=== PATIENT | female | born 1955 | race Caucasian/White ===

== ENCOUNTER 2024-10-01 10:36 | Emergency (ER) | payer MEDICARE, SELFPAY ==
--- NOTE | ~2024-10-01 | XR_ITS ---
EXAMINATION: XR chest 2V DATE: 10/01/2024 11:51 INDICATION: Cough and congestion TECHNIQUE: frontal and lateral views of the chest were obtained. COMPARISON: None FINDINGS: A few small calcified nodules in the bilateral lower lung zones with calcified mediastinal lymph node s consistent with old granulomatous disease. No other airspace opacities, pulmonary edema, pleural ef fusion or pneumothorax. The cardiomediastinal silhouette is normal. Mild to moderate thoracic spondyl osis. Cholecystectomy clips the upper abdomen. IMPRESSION: 1. No acute cardiopulmonary disease. Reviewed, dictated and finalized at location A.
[2024-10-01 11:00] VITALS: BP 112/73; PULSE 77; RESP 16; TEMP 36.3; O2SAT 99
--- NOTE | 2024-10-01 11:37 | ED_ITS ---
HPI - URI/Sore Throat General Chief Complaint: Upper Respiratory Infection Stated Complaint: cough Time Seen by Provider: 10/01/24 11:24 Source: patient, RN notes reviewed and old records reviewed Mode of arrival: ambulatory Limitations: no limitations History of Present Illness HPI Narrative: 68 year old female accompanied by spouse presents to express care with complaints of one week duration of cough with fevers for the first 2 days ill. Patient reports that she has some chest congestion with expectoration of some white mucous, states ribs hurt from coughing so much. Patient reports that she has taken DayQuil and NyQuil and she is now taking Coricidin brand cold medication without resolution. Patient reports that she has had past pneumonia. MD elicited complaint: fever, cough and other (chest congestion ribs hurt from coughing) Pertinent past history: pneumonia Onset (ago): week(s) (1) Consistency: constant Severity: moderate Description of mucous: other (white) Able to tolerate fluids by mouth: Yes Treatments prior to arrival: other (has taken DayQuil and NyQuil now taking Coricidin cold medication) Related Data Home Medications ?Medication ?Instructions ?Recorded ?Confirmed ?Last Taken ?Type carvedilol 10/01/24 Unknown History losartan-hydrochlorothiazide 10/01/24 Unknown History simvastatin 10/01/24 Unknown History topirimate 10/01/24 Unknown History trazadone 10/01/24 Unknown History Allergies Allergy/AdvReac Type Severity Reaction Status Date / Time codeine Allergy Unknown Unknown Verified 10/01/24 10:54 Review of Systems Review of Systems: CONSTITUTIONAL:Reports malaise, chills, sweats, and fevers for 2 days at initial start of illness EYES: Denies visual changes, redness, or discharge. ENT: Reports rhinorrhea, congestion, no sinus pain, no otalgia and no sore throat. CARDIOVASCULAR: Denies chest pain, palpitations, or edema. RESPIRATORY: Reports productive cough at times, states cough is frequent.? Denies dyspnea.reports rib pain from frequent cough GASTROINTESTINAL: Denies abdominal pain, nausea, vomiting, diarrhea SKIN: Denies rash or itching. MUSCULOSKELETAL: Denies myalgia. NEUROLOGIC: Denies headache. All systems reviewed & are unremarkable except as noted in HPI and below PMFSH Past Medical History Medical History (Updated 10/02/24 @ 20:32 by Arlene Ruiz NP) Insomnia Hyperlipidemia Hypertension Surgical History Surgical History (Updated 10/02/24 @ 20:35 by Arlene Ruiz NP) Hx of cholecystectomy Social History Social History Smoking status: Former smoker Additional smoking assessment comments: quit 2008 Alcohol intake: current Alcohol use details: rare Substance use type: does not use Living arrangements: with family Gender identity (if verbalized by the patient): Female Comments At time of signature, agree with nursing past medical, surgical, social and family history. There is no relevant family history pertinent to the presenting complaint Exam Narrative: GENERAL: Well-appearing, well-nourished, and in no acute distress. HEAD: Normocephalic EYES: PERRLA, conjunctivae clear ENT: Nares clear, turbinates edematous and erythematous, clear discharge. Mucous membranes moist. TM pearly berry with dull light reflex bilaterally; no tragal tenderness. Oropharynx erythematous without lesions. Tonsils not enlarged and without exudate, no drooling, no hoarseness, no trismus, uvula midline post nasal drainage. NECK: Supple. No lymphadenopathy CHEST: Faint wheezes upper lobes auscultation, breath sounds equal. + wheezing, no rhonchi, rales, or stridor. No respiratory distress, speaks in full sentences cough noted at times productive. SAO2 99% on room air. HEART: Regular rate and rhythm. No murmur heard. SKIN: Warm, dry, no rash. NEURO: Alert and oriented x3. PSYCH: Normal mood and affect Course Course Emergency Course: Patient is aware of diagnosis, understands and agrees to treatment plan.? Anticipatory guidance given.? Patient agrees to follow-up as directed and is aware of reasons to seek care at the emergency department. Portions of this record may have been created with voice recognition software Level of Care: Express Care Visit Vital Signs Vital signs: Vital Signs Temperature 36.3 C L 10/01/24 11:00 Pulse Rate 77 10/01/24 11:00 Respiratory Rate 16 10/01/24 11:00 Blood Pressure 112/73 10/01/24 11:00 Pulse Oximetry 99 10/01/24 11:00 Oxygen Delivery Room Air 10/01/24 11:00 Temperature 36.3 C L 10/01/24 11:00 Pulse Rate 77 10/01/24 11:00 Respiratory Rate 16 10/01/24 11:00 Blood Pressure 112/73 10/01/24 11:00 Pulse Oximetry 99 10/01/24 11:00 Oxygen Delivery Room Air 10/01/24 11:00 Reviewed MDM - URI/Sore Throat MDM Narrative Medical decision making narrative: Differential diagnosis considered: De [place] virus, strep pharyngitis, allergic rhinitis, upper respiratory tract infection, sinusitis, rhinosinusitis, nasopharyngitis. viral pharyngitis, otitis media, otitis externa, pneumonia, bronchitis, viral cough syndrome, viral syndrome, and influenza.? Exam findings show no acute concerns or changes; patient is non-toxic appearing and is in no distress.? Patient is appropriate for outpatient treatment and follow-up. Differential Diagnosis Differential diagnosis: Likely upper respiratory infection, viral infection, bronchitis and other (acute cough) Medical Records Attestation: I reviewed the patient's medical records. Lab Data Attestation: I reviewed the patient's lab results. Imaging Data Attestation: I personally reviewed and interpreted this imaging study as follows: My impression: no acute cardiopulmonary disease Radiologist's impression: [address] [employer] [place] [id number] XRay Report Signed Patient: Sarai Doss : 1955 MR#: [id number] Age: 68 Acct:[id number] Loc: [facility] ADM Date: 10/01/24Attending Dr: Ordering Physician: Arlene Ruiz APRN Date of Service: 10/01/24 Procedure(s): XR chest 2V Accession Number(s): [id number] cc: Arlene Ruiz APRN~ EXAMINATION: XR chest 2V DATE: 10/01/2024 11:51 INDICATION: Cough and congestion TECHNIQUE: frontal and lateral views of the chest were obtained. COMPARISON: None FINDINGS: A few small calcified nodules in the bilateral lower lung zones with calcified mediastinal lymph nodes consistent with old granulomatous disease. No other airspace opacities, pulmonary edema, pleural effusion or pneumothorax. The cardiomediastinal silhouette is normal. Mild to moderate thoracic spondylosis. Cholecystectomy clips the upper abdomen. IMPRESSION: 1. No acute cardiopulmonary disease. Reviewed, dictated and finalized at location A. Please be advised this is a medical document. It is intended for uioo-ej-pbsj communication. It is written in medical language and may contain unfamiliar abbreviations or verbiage. Medical documents are intended to carry relevant information, facts as evident, and the clinical opinion of the practitioner at the time of the encounter. This report may have been done utilizing a voice recognition system. Attempts have been made to correct errors. However, there may be uncorrected grammatical, spelling, and recognition errors present. The file time of this note does not necessarily represent the time of service. Dictated By: Lefty Davey MD 10/01/24 1157 Signed By: <Electronically signed by Lefty Davey MD in OV> Critical Care Time Critical Care Time Critical Care Time: No Discharge Plan Discharge Clinical Impression: Bronchitis Patient Disposition: Home Condition: Stable Instructions: Antibiotic Form, Acute Bronchitis (ED) Additional Instructions: Increase fluids especially juices and water Buwr-xkm-lmofbph cough and cold medicine of your choice for your symptoms Zyrtec Claritin or Berna daily continue Coricidin brand decongestant Continue your inhaler/nebulizer as directed Albuterol inhaler prescribed Steroids as directed--take with food Prednisone daily for 5days with food heat to the face 20-30 minutes 4-6 times a day for pain Salt water gargles, throat lozenges or throat sprays as desired Antibiotic as directed--finished the medication Azithromycin 250 mg tabs 2 day 1 tab1 day 2-5 If your symptoms persist, change or worsen significantly before you can contact your personal physician then please, without delay, go to the emergency department for further evaluation. Follow-up with PCP in 7-10 days or sooner if needed Follow up with PCP soon in regards to your blood pressure which is elevated above threshold for referral. Blood pressure above 120/80 may indicate pre- hypertension. Written prescription given for patient to have filled at her pharmacy. Patient Language: [place] Prescriptions: No Action simvastatin losartan-hydrochlorothiazide trazadone carvedilol topirimate Follow-up/Referrals: PHYSICIAN NOT ON STAFF,NONSTAFF [Primary Care Provider] - Time of Disposition: 12:17 Quality Bret Coma Scale Eyes: Open Verbal: Oriented and Alert Motor: Follows Commands [place] Coma Total Score: 15
--- OUTSIDE RECORDS SUMMARY | 2024-10-01 17:58 | XMS_ITS | Continuity of Care Document ---
Author Organization [email or web address] [facility] [place] [address] [address] [place] [address] Phone Care Team Providers Care Receiver Name Role Phone Salvatore Urrutia MD Unavailable Unavailable Allergies, Adverse Reactions, Alerts Substance Reaction Status Criticality No Known Allergies Active No Inform ation Medications Medication Instructions Dosage Effective Dates (start - stop) Status Comments prednisolone acetate 1 % eye drops,suspension instill 1 drop by ophthalmic route 4 times every day into operative eye for 2 weeks, then 2 times per day for 2 weeks, then stop - Active moxifloxacin 0.5 % eye drops instill 1 drop by ophthalmic route 4 times every day into operative eye for 2 weeks, then stop - Active ketorolac 0.5 % eye drops instill 1 drop in operative eye 4 times every day for 2 weeks, then 2 times per day for 2 weeks, then stop - Active trazodone 50 mg tablet take 1 tablet by oral route 3 times every day after meals 50 MG - Active topiramate 100 mg tablet take 1 tablet by oral route 2 times every day 100 MG - Active simvastatin 40 mg tablet take 1 tablet by oral route every day in the evening 40 MG - Active clonidine HCl 0.2 mg tablet take 1 tablet by oral route 2 times every day 0.2 MG - Active carvedilol 12.5 mg tablet take 1 tablet by oral route 2 times every day with food 12.5 MG - Active Procedures Procedure Date No Charge Refraction Post-op Follow-up Visit Post-op Follow-up Visit Post-op Follow-up Visit Remove Cataract, Insert Lens IOLMaster-Professional No Charge Refraction Post-op Follow-up Visit Post-op Follow-up Visit Remove Cataract, Insert Lens IOLMaster-Professional IOLMaster-Technical SCODI, Retina No Charge Optomap Fundus Photos 023 No Charge Refraction No Charge Orbscan No Charge GDX Posterior Segment 023 Office/outpatient Visit, [facility] Advance Directives Directive Yes / No Effective Date File Name No Information Encounters Encounter Description Practice Location Reason(s) For Visit Diagnoses Date Provider Providers Copied on Encounter [facility], [address] [place] [address], [id number], tel:[phone] SEC Jason CARPENTER Professional Post-Op (chief complaint) Post op visit 3 Renan Chase. [address] [facility] [place], [id number], [place]. tel:[phone] Referring Provider: Maurizio Ramos OD, [address] [place] [address], [address] . tel:[phone] [facility], [address] [place] [address] [address], [place], [place], [id number], [place] tel:[phone] SEC Jason JAYDEN Professional 1 week s/p PCIOL (chief complaint) Post op visit 3 Elmer OD Apoorva. [address] [place] [address], [address], [place], [place], [id number], [place]. tel:[phone] Referring Provider: Maurizio Ramos OD, [facility] [place], [address] . tel:[phone] [facility], [address] [place] [address] [address], [place], [place], [id number], tel:[phone] SEC Blanchard JAYDEN Professional 1 day s/p PCIOL (chief complaint) Post op visit Aug- 3 Elmer OD Apoorva. [address] [place] [address] [employer] [facility], [address], [place], [place], [id number], . tel:[phone] Referring Provider: Maurizio Ramos OD, [address] [place] [address], [address] . tel:[phone] [facility], [address] [place] [address] [address], [place], [place], [id number], tel:[phone] [facility] No Information 3 Renan Chase. [address] [facility], [facility] [place], [id number], [place]. tel:[phone] Referring Provider: Maurizio Ramos OD, [address] [place] [address], [address] . tel:[phone] [facility], [address] [place] [address] [address], [place], [place], [address], [phone] SEC Jason CARPENTER Professional No Information 3 Renan Chase. [address] [facility], [facility] [place], [id number], [place]. tel:[phone] Referring Provider: Maurizio Ramos OD, [address] [place] [address], [address] . tel:[phone] [facility], [address] [place] [address] [address], [place], [place], [address], [place] tel:[phone] SEC Jason CARPENTER Professional 2 week postop (chief complaint) Post op visit Aug-0 3 Elmer OD Apoorva. [address] [place] [address] [employer] [facility], [address], [place], [place], [address], . tel:[phone] Referring Provider: Maurizio Ramos OD, [address] [place], [address] . tel:[phone] [facility], [address] [place] [address] [address], [place], [place], [id number], [place] tel:[phone] SEC Jason [place] Professional 1 day PC IOL po (chief complaint) Post op visit Jul-2 3 Elmer OD Apoorva. [address] [place] [address] [address], [address], [place], [place], [address], [place]. tel:[phone] Referring Provider: Maurizio Ramos OD, [address] [place], [address] . tel:[phone] [facility], [address] [place] [address] [address], [place], [place], [id number], [place] tel:[phone] [facility] No Information Jul-2 3 Renan Chase. [address] [facility], [address], [place], [place], [address], [place]. tel:[phone] Referring Provider: Maurizio Ramos OD, [address] [place], [address] . tel:[phone] [facility], [address] [place] [address] [address], [place], [place], [id number], [place] tel:[phone] SEC Jason JAYDEN Professional No Information Jul-2 3 Renan Chase. [address] [facility], [address], [place], [place], [address], [place]. tel:[phone] Referring Provider: Maurizio Ramos OD, [address] [place], [address] . tel:[phone] [facility], [address] [place] [address] [address], [place], [place], [address], [place] tel:[phone] SEC Jason JAYDEN Professional No Information Jul-1 3 Renan Chase. [address] [employer], [address], [place], [place], [address], [place]. tel:[phone] Office/outpa tient Visit, [facility], [address], [place], [place], [address], tel:[phone] Looking for Gamersn JAYDEN Professional Cataract evaluation (chief complaint) History of pituitary tumorDegenera tive retinal drusen, left eyeAge-relate d nuclear cataract, bilateral 3 Renan Chase. [address] [employer], [address], [place], [place], [address], [place]. tel:[phone] Referring Provider: Maurizio Ramos OD, [address] [facility], [place], [address] . tel:[phone] [facility], [address] [place] [address] [address], [place], [place], [address], tel:[phone] Looking for Gamersn JAYDEN Professional No Information 3 Renan Chase. [address] [employer], [address], [place], [place], [address], [place]. tel:[phone] Family History Family Member Type Diagnosis Age At Onset No Information Payers Payer name Insurance type Covered republican ID Authoriza tion(s) No Information Social History Type Description Quantity Date Captured Comments Alcohol Use Details No Caffeine Use Details Tobacco Use Status Current non-smoker Smoking Status Never smoker Non-Smoking Tobacco Use Details : No Details Available : No Details Available Sex Female Chief Complaint And Reason For Visit From encounter dated '09/23/2022 10:00'. Post-Op (chief complaint). Description: The 66 year old patient presents for a 1 month post op CE OS. Patient is finished with drops. Patient states OS is doing good. Reason For Referral Reason For Referral No Information Plan Of Treatment Date Type Action Status Patient Education Learning About Your Eye s completed History Of Present Illness Encounter Date Complaint History Of Prese nt Illness Post-Op The 66 year old patient presents for a 1 month post op CE OS. Patient is finished with drops. Patient states OS is doing good. 1 week s/p PCIOL The 66 year old patient presents for evaluation of 1 week s/p PCIOL in the left eye (08/26/22). Patient states VA seems good. Patient using Pred, Vig, and Ket as directed. 1 day s/p PCIOL The 66 year old patient presents for evaluation of 1 day s/p PCIOL in the left eye. Patient states VA seems fine but the left eye is hurting. Patient instructed to use Pred, Ket, and Vig as directed. 2 week postop The 66 year old patient presents for evaluation of 2 week postop in the right eye. Pt. had PC/IOL OD 07/22/2022. Pt. is using Pred OD qid, and Ket OD qid. Pt. states her vision is improved in OD. Pt. has a cataract in OS. Pt. is c/o of difficulty seeing small print with OS even with glasses on. Pt. is also having trouble driving at night due to glare from headlights. 1 day PC IOL po The 66 year old patient presents for evaluation of 1 day PC IOL po in the right eye. All medications reviewed and PO instructions understood. Pt using Vig qid, PF1% qid, and Ketorolac qid. Pt states eye is itching and throbbing. Pt states vision is still blurry. Cataract evaluation The 66 year old patient presents for a cataract evaluation ou. Patient is a glaucoma suspect per Dr. Ramos and would like an ON OCT to be mailed to him. Patient c/o hers eyes hurt a lot. 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 Patient is bothered by glare around lights at night. Patient is having a hard time reading small print. Functional Status Date Functional Assessmen t No Information Instructions Date Instruction Additional Infor milla Impression/Plan Impression/Plan Impression/Plan Impression/Plan Impression/Plan Impression/Plan Assessments Type Assessment Date assessment Post op visit Patient Care Teams Name Effective Dates (start - stop) Status Members No Information
--- OUTSIDE RECORDS SUMMARY | 2024-10-01 17:58 | XMS_ITS | Clinical Summary ---
Author Organization [facility] Address [address] [place] [address] Care Team Providers Care Linderman Machine Operator Name Role Phone Terrie Sheridan LAMINATING MACHINE OFFBEARER Primary Care Provider Allergies Active Allergy Reactions Criticality Noted Date Comments Codeine Nausea & Vomiting,Other (See comments) High Medications carvedilol (COREG) 12.5 mg tabletIndications:h ypertension Take 12.5 mg by mouth 2 (two) times a day with meals Active simvastatin (ZOCOR) 40 mg tabletIndications:h yperlipidemia Take 40 mg by mouth nightly Active traZODone (DESYREL) 50 mg tablet Take 50 mg by mouth nightly Active cetirizine (ZyrTEC) 10 mg tablet Take 10 mg by mouth daily Active venlafaxine (EFFEXOR) 25 mg tablet Take 25 mg by mouth 3 (three) times a day 2 Active cloNIDine (CATAPRES) 0.2 mg tablet Take 0.2 mg by mouth 3 (three) times a day 7 Active topiramate (TOPAMAX) 100 mg tablet Take 100 mg by mouth 2 (two) times a day 2 Active ondansetron ODT (ZOFRAN-ODT) 4 mg disintegrating tablet Take 1 tablet (4 mg total) by mouth every 8 (eight) hours as needed for nausea or vomiting 20 tablet 2 Active azithromycin (Zithromax Z-Mynor) 250 mg tablet Take 1 tablet (250 mg total) by mouth daily Take first 2 tablets together, then 1 every day until finished. 6 tablet 2 Active ondansetron (ZOFRAN) 4 mg tablet Take 1 tablet (4 mg total) by mouth every 6 (six) hours 12 tablet 2 Active butalbital-acetamin ophen-caffeine (ESGIC) 50-325-40 mg per tablet TAKE 1 TABLET BY MOUTH EVERY 6 HOURS NEEDED FOR HEADACHE OR MIGRAINE 2 Active HYDROcodone-acetami nophen (NORCO) 5-325 mg per tabletIndications:P ain Take 1-2 tablets by mouth every 4 (four) hours as needed for pain Do not exceed 8 tablets/day. 15 tablet 2 Active Active Problems Problem Noted Date Diagnosed Date Epidermoid cyst of skin of chest 07/30/2021 Overview (07/30/2021): Added automatically from request for surgery [id number] Vaginal vault prolapse, posthysterectomy 020 Overview (04/16/2020): Added automatically from request for surgery [id number] Encounter for screening colonoscopy 07/27/2018 Overview (07/27/2018): Added automatically from request for surgery [id number] Encounters Date Type Department Care Team Description 08/29/2024 12:54 PM CDT - 08/29/2024 11:59 PM CDT Hospital Encounter [facility] [address] [place] [id number] Encounter for screening mammogram for malignant neoplasm of breast Discharge Disposition: Discharge to home or self care 08/29/2024 12:53 PM CDT - 08/29/2024 11:59 PM CDT Hospital Encounter [facility] [address] [place] [id number] Encounter for screening for osteoporosis Discharge Disposition: Discharge to home or self care from Last 3 Months Surgical History Surgery Date Site/Laterality Comments HYSTERECTOMY OOPHORECTOMY COLOSTOMY 12/31/2008 Dr Rock CHOLECYSTECTOMY PITUITARY EXCISION N/A Medical History Medical History Date Comments GERD (gastroesophageal reflux disease) Hypertension Hyperlipidemia Family History Medical History Relation Name Comments Breast cancer Mother Relation Name Status Comments Mother Social History Tobacco Use Types Packs/Day Years Used Date Smoking Tobacco: Former Smokeless Tobacco: Never Comments:quit in 2008 Alcohol Use Standard Drinks/Week Comments Yes 0 (1 standard drink = 0.6 oz pur e alcohol) occasional AUDIT-C Answer Date Recorded Q1: How often do you have a drink containing alc ohol? Monthly or less 08/07/2021 Average Number of Drinks Not on file 022 Q3: How often do you have si x or more drinks on one occasion? 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 ENGINEERING MANAGER Gender Identity Not on file Sexual Orientation Not on file Obstetrics History Para Term AB IAB SAB Ectopic Multiple Livin g Live Births 4 3 3 Date Outcome GA Total Labor Labor/3rd Weight Sex Type Anes PTL Verito A1 A5 Name Clin Term Term Term Last Filed Vital Signs Vital Sign Reading Time Taken Comments Blood Pressure 165/79 04/26/2022 3:07 PM CIVIL ENGINEERING MANAGER Pulse 56 04/26/2022 3:07 PM CIVIL ENGINEERING MANAGER Temperature 36.5 C (97.7 F) 04/26/2022 3:07 PM CIVIL ENGINEERING MANAGER Respiratory Rate 18 04/26/2022 3:07 PM CIVIL ENGINEERING MANAGER Oxygen Saturation 100% 04/26/2022 3:07 PM CIVIL ENGINEERING MANAGER Inhaled Oxygen Concentration - - Weight 53.5 kg (118 lb) 08/29/2024 1:06 PM CDT Height 144.8 cm (4' 9) 08/29/2024 1:06 PM CDT Body Mass Index 25.53 08/29/2024 1:06 PM CDT Plan of Treatment Health Maintenance Due Date Last Done Comments Depression Screening 1955 Hepatitis C Screening 1955 Hepatitis B Screening 10/12/1973 Zoster Vaccine (1 of 2) 10/12/2005 Well Visit 65+ 10/12/2020 Fall Risk Assessment 05/14/2021 05/14/2020 Pneumococcal vaccine 65+ (2 of 2 - PPSV23) 10/28/2021 10/28/2020 Covid-19 Vaccine (4 - 2023-2 5 season) 2024 02/25/2021, 07/05/2020, 06/07/2020 Breast Cancer Screening-Mammogram 08/29/2025 08/29/2024, 04/22/2023, 11/18/2020, Additional history exists Osteoporosis Screening-Bone Density Scan 08/29/2026 08/29/2024 DTaP/Tdap/Td Vaccine (2 - Td or Tdap) 07/19/2028 07/19/2018, 08/31/2013, 05/03/2011 Colon Cancer Screening-Colonoscopy 08/09/2028 08/09/2018 Colon Cancer Screening-CT Colonography Discontinued 08/09/2018 Colon Cancer Screening-DNA Stool Discontinued 08/10/19 Colon Cancer Screening-FIT Discontinued 08/09/2018 Colon Cancer Screening-Sigmoidoscopy Discontinued 08/09/2018 Influenza Vaccine Completed 01/19/2024, , 02/25/2021, Additional history exists Medical Devices Implanted Type Area Rn Appeals Device Identifier Shelf Expiration Date Model / Serial / Lot [employer] Tati [id number] Upsylon 35.4cm Elongation Profile Lightweight Large Pore Low - [id number] Implanted:Qty: 1 on 05/14/2020 by Duane Mcguire MD at [facility] Mesh N/A: Pelvis [employer] 01/30/2023 [id number] / / [id number] [employer] [id number] Obtryx Ii Precisionblue Advantage .15mm 22cm Sling Halo Needle - [id number] Implanted:Qty: 1 on 05/14/2020 by Duane Mcguire MD at [facility] N/A: Pelvis [employer] 03/20/2023 [id number] / / [id number] Procedures Procedure Name Priority Date/Time Associated Diagnosis Comments SCREENING MAMMOGRAM BILATERAL W GONZALO Schedule Routine, Read Routine (OP Routine) 08/29/2024 1:11 PM CDT Encounter for screening mammogram for malignant neoplasm of breast DEXA AXIAL SKELETON BONE DENSITY 1 OR MORE SITES Schedule Routine, Read Routine (OP Routine) 08/29/2024 1:10 PM CDT Encounter for screening for osteoporosis COLONOSCOPY 08/09/2018 10:53 AM CDT from Last 3 Months or Most Recently Relevant to Health Maintenance Results * Screening Mammogram Bilateral W Gonzalo (08/29/2024 1:11 PM CDT) Anatomical Region Laterality Modality Breast Bilateral Mammography Impressions 08/30/2024 12:18 PM CDT Bilateral No evidence of malignancy in either breast. OVERALL BI-RADS FINAL ASSESSMENT: 1 - Negative RECOMMENDATION: Recommend bilateral annual screening mammography. Narrative 08/30/2024 12:18 PM CDT EXAMINATION: Screening Mammogram Bilateral W Gonzalo: 08/29/2024 COMPARISON: Relevant prior studies available at the time of interpretation were reviewed. TECHNIQUE: Mammography was performed with 2D and digital breast tomosynthesis (DBT) images. CAD was utilized. BREAST PARENCHYMAL COMPOSITION: There are scattered areas of fibroglandular density. FINDINGS: Bilateral There is no suspicious mass, calcification, or architectural distortion in either breast. us Provider Transcribed Order IMG MAMMO PROCEDURES Final Result * Dexa Axial Skeleton Bone Density 1 or 2 Site (08/29/2024 1:10 PM CDT) Anatomical Region Laterality Modality Body N/A Other 08/29/2024 2:20 PM CDT Narrative 08/29/2024 2:31 PM CDT EXAM DESCRIPTION: DEXA AXIAL SKELETON BONE DENSITY 1 OR MORE SITES REASON FOR STUDY: 68 y/o year old F with given history of: Post menopausal status. Rn Appeals/Model: CrossCore Discovery SL (S/N [id number]) Facility LSC value of 0.022 for the AP spine, 0.027 for the femur, and 0.023 for the forearm. CLINICAL INFORMATION: Current height: 58 inches Maximum height: 62 inches Weight: 128 pounds Risk factors: None COMPARISON: None available FINDINGS: AP LUMBAR SPINE L1-L4: Total BMD is 0.893 g/cm2 T-score is -1.4 LEFT HIP: Total BMD is 0.645 g/cm2 T-score is -2.4 Femoral neck BMD is 0.589 g/cm2 T-score is -2.3 FRAX: 10 year risk for a major osteoporotic fracture is 13 %, 10 year risk for a hip fracture is 2.6 % Per National Osteoporosis Foundation guidelines, this patient does not meet the criteria for pharmacological treatment of patients with FRAX 10 year major osteoporotic fracture risk scores of = or greater than 20% or a 10 year probability of a hip fracture = or greater than 3%, to reduce fracture risk. Additional factors such as frequent falls are not represented in FRAX and warrant individual clinical judgment. IMPRESSION: Low bone mass REFERENCE: Bone mineral density: T-Score: Normal (T-score above or = -1.0) Low bone mass (T-score between -1.0 and -2.5) replaces the previously used term osteopenia Osteoporosis (T-score = or below -2.5) Z-Score: Within the expected range for age (Z-score above -2.0) Below the expected range for age (Z-score is -2.0 or below) Please see below follow up recommendations. Medical evaluation for secondary causes of low bone mineral density may be appropriate. FRAX is a World Health Organization validated fracture risk assessment tool that calculates a person's 10 year probability of a major osteoporosis related fracture and hip fracture. According to the National Osteoporosis Foundation guidelines, postmenopausal women and men age 50 or older with low bone mass and a 10 year probability of a major osteoporosis related fracture = or greater than 20% or a 10 year probability of a hip fracture = or greater than 3% should be considered for pharmacological treatment for the prevention of osteoporosis. For further information, including treatment recommendations, please refer to the 2019 ISCD Official Positions (http://www.iscd.org) and the NOF's Clinician's Guide to Prevention and Treatment of Osteoporosis (http://www.nof.org/professionals/clinical-guidelines) THIS IS AN ELECTRONICALLY VERIFIED FINAL REPORT 08/29/2024 2:31 PM - Electronically signed by Carole Sanchez M.D. TW: TW Report ID: [id number] Reading Location: [id number] Procedure Note Carole Sanchez MD - 08/29/2024 EXAM DESCRIPTION: DEXA AXIAL SKELETON BONE DENSITY 1 OR MORE SITES REASON FOR STUDY: 68 y/o year old F with given history of: Post menopausal status. Rn Appeals/Model: servtag (S/N [id number]) Facility LSC value of 0.022 for the AP spine, 0.027 for the femur, and0.023 for the forearm. CLINICAL INFORMATION: Current height: 58 inches Maximum height: 62 inches Weight: 128 pounds Risk factors: None COMPARISON: None available FINDINGS: AP LUMBAR SPINE L1-L4: Total BMD is 0.893 g/cm2 T-score is -1.4 LEFT HIP: Total BMD is 0.645 g/cm2 T-score is -2.4 Femoral neck BMD is 0.589 g/cm2 T-score is -2.3 FRAX: 10 year risk for a major osteoporotic fracture is 13 %, 10 year risk for ahip fracture is 2.6 % Per National Osteoporosis Foundation guidelines, this patient does notmeet the criteria for pharmacological treatment of patients with FRAX 10 yearmajor osteoporotic fracture risk scores of = or greater than 20% or a 10 year probability of a hip fracture = or greater than 3%, to reduce fracturerisk. Additional factors such as frequent falls are not represented in FRAX and warrant individual clinical judgment. IMPRESSION: Low bone mass REFERENCE: Bone mineral density: T-Score: Normal (T-score above or = -1.0) Low bone mass (T-score between -1.0 and -2.5) replaces thepreviously used term osteopenia Osteoporosis (T-score = or below -2.5) Z-Score: Within the expected range for age (Z-score above -2.0) Below the expected range for age (Z-score is -2.0 or below) Please see below follow up recommendations. Medical evaluation forsecondary causes of low bone mineral density may be appropriate. FRAX is a World Health Organization validated fracture risk assessmenttool that calculates a person's 10 year probability of a major osteoporosisrelated fracture and hip fracture. According to the National OsteoporosisFoundation guidelines, postmenopausal women and men age 50 or older with low bonemass and a 10 year probability of a major osteoporosis related fracture = or greater than 20% or a 10 year probability of a hip fracture = or greaterthan 3% should be considered for pharmacological treatment for the preventionof osteoporosis. For further information, including treatment recommendations, please referto the 2019 ISCD Official Positions (http://www.iscd.org) and the NOF's Clinician's Guide to Prevention and Treatment of Osteoporosis (http://www.nof.org/professionals/clinical-guidelines) THIS IS AN ELECTRONICALLY VERIFIED FINAL REPORT 08/29/2024 2:31 PM - Electronically signed by Carole Sanchez M.D. TW: TW Report ID: [id number] Reading Location: [id number] us Provider Transcribed Order IMG DXA PROCEDURES Fi nal Result * COLONOSCOPY (08/09/2018 10:53 AM CDT) Anatomical Region Laterality Modality Other Narrative Procedure Note Malathi Jamison MD - 08/09/2018 10:53 AM CDT [facility] Patient Name: Sarai Doss Procedure Date: 08/09/2018 10:53 AM Date of : 1955 Admit Type: Outpatient Age: 62 Gender: Female Attending MD: Malathi Jamison M.D. Room: [facility] ENDOSCOPY ROOM 1 Note Status: Addendum Patient Profile: 62 WF, screening, no family h/o colon cancer. Procedure: Colonoscopy Indications: Screening for colorectal malignant neoplasm Referring MD: Kaylan Gray M.D. Providers: Malathi Jamison M.D. Impression: - The entire examined colon is normal. - Internal hemorrhoids. - No specimens collected. Recommendation: - Repeat colonoscopy in 10 years for screeningpurposes. - Continue present medications. Medicines: Monitored Anesthesia Care Complications: No immediate complications. Estimated Blood Loss: Estimated blood loss: none. Procedure: Pre-Anesthesia Assessment: - Prior to the procedure, a History and Physical was performed, and patient medications and allergieswere reviewed. The patient's tolerance of previous anesthesia was also reviewed. The risks and benefitsof the procedure and the sedation options and riskswere discussed with the patient. All questions were answered, and informed consent was obtained. Prior Anticoagulants: The patient has taken no previous anticoagulant or antiplatelet agents. ASA Grade Assessment: II - A patient with mild systemicdisease. After reviewing the risks and benefits, the patientwas deemed in satisfactory condition to undergo the procedure. The benefits, risks and alternatives of theprocedure and sedation were discussed and informed consent was obtained. All questions were answered. Please referto the signed informed consent document in the medical record. The scope was passed under direct vision.The Pediatric Colonoscope PCF-H190L [id number] was introduced through the anus and advanced to the the cecum, identified by appendiceal orifice andileocecal valve. The colonoscopy was performed without difficulty. The patient tolerated the procedurewell. The quality of the bowel preparation wasexcellent. Findings: The perianal and digital rectal examinations were normal. The cecum appeared normal. The colon (entire examined portion) appeared normal. No polyps and no mass lesions. Internal hemorrhoids were found during retroflexion. The hemorrhoids were small. Electronically signed by Malathi Jamison M.D. Malathi Jamison M.D. 08/09/2018 11:30:35 AM Number of Addenda: 1 Note Initiated On: 08/09/2018 10:53 AM Procedure Code(s): --- Professional --- G0121, Colorectal cancer screening; colonoscopy on individual not meeting criteria for high risk Diagnosis Code(s): --- Professional --- Z12.11, Encounter for screening for malignant neoplasm of colon K64.8, Other hemorrhoids CPT copyright 2017 [employer]. All rights reserved. The codes documented in this report are preliminary and upon polisher brass reviewmay be revised to meet current compliance requirements. Recognized by the [place] [employer] for promoting quality in endoscopy Addendum Number: 1 Addendum Date: 08/09/2018 12:41:21 PM After discussion with the patinet noted her father had colon cancer. Repeat colonoscopy every 5 years (and not 10 yeasr) was thenrecommended to the patient. Electronically signed by Malathi Jamison M.D. Malathi Jamison M.D. 08/09/2018 12:42:08 PM Malathi Jamison MD ENDOSCOPY PROCEDURES Edite d Result - Final from Last 3 Months or Most Recently Relevant to Health Maintenance Insurance [facility] MEDICARE ADVANTAGE UHC MEDICARE ADVANTAGE Advance Directives For more information, please contact: [phone] * Full Code (Latest Code Status on File) Date Activated Date Inactivated Comments 08/09/2018 10:09 AM 08/09/2018 4:24 PM * Full Code Date Activated Date Inactivated Comments 08/09/2018 10:09 AM 08/09/2018 10:09 AM Care Teams Linderman Machine Operator Relationship Specialty Start Date End Date Terrie Sheridan NP [address] [facility] [address] WHEELER [address] [address] PCP - General Nurse Practitioner 07/05/24
--- OUTSIDE RECORDS SUMMARY | 2024-10-01 17:58 | XMS_ITS | Referral Summary ---
Author Organization [facility] Address [address] [place] [address] Care Team Providers Care Shipping Weigher Name Role Phone Terrie Sheridan NP Primary Care Provider Encounters Date Type Department Care Team Description 08/29/2024 12:53 PM CDT - 08/29/2024 11:59 PM CDT Hospital Encounter [address] [address] Encounter for screening for osteoporosis Discharge Disposition: Discharge to home or self care 08/29/2024 12:54 PM CDT - 08/29/2024 11:59 PM CDT Hospital Encounter [address] [address] Encounter for screening mammogram for malignant neoplasm of breast Discharge Disposition: Discharge to home or self care from Last 3 Months Allergies Active Allergy Reactions Criticality Noted Date [...] (07/30/2021): Added automatically from request for surgery [id number] Vaginal vault prolapse, posthysterectomy 020 Overview (04/16/2020): Added automatically from request for surgery [id number] Encounter for screening colonoscopy 07/27/2018 Overview (07/27/2018): Added automatically from request for surgery [id number] Social History Tobacco Use Types Packs/Day Years [...] on file Legal Sex Female 2:18 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 Gender Identity Not on file Sexual Orientation Not on file Last Filed Vital Signs Vital Sign Reading Time Taken Comments Blood Pressure 165/79 04/26/2022 3:07 PM CRIBBER Pulse 56 04/26/2022 3:07 PM CRIBBER Temperature 36.5 C (97.7 F) 04/26/2022 3:07 PM CRIBBER Respiratory Rate 18 04/26/2022 3:07 PM CRIBBER Oxygen Saturation 100% 04/26/2022 3:07 PM CRIBBER Inhaled Oxygen Concentration - - Weight 53.5 kg (118 lb) 08/29/2024 1:06 PM CDT Height 144.8 cm (4' 9) 08/29/2024 1:06 PM CDT Body Mass Index 25.53 08/29/2024 1:06 PM CDT Plan of Treatment Not on file Medical Devices Implanted Type Area Cardroom Drawing Runner Device Identifier Shelf Expiration Date Model / Serial / Lot [employer] Tati 190188 Upsylon 35.4cm Elongation Profile Lightweight Large Pore Low - [id number] Implanted:Qty: 1 on 05/14/2020 by Duane Mcguire MD at [facility] Mesh N/A: Pelvis [employer] 01/30/2023 [id number] / / [id number] [employer] [id number] Obtryx Ii Precisionblue Advantage .15mm 22cm Sling Halo Needle - [id number] Implanted:Qty: 1 on 05/14/2020 by Duane Mcguire MD at [facility] N/A: Pelvis [employer] Tati 03/20/2023 [id number] / / [id number] Procedures Procedure Name Priority Date/Time Associated Diagnosis [...] with given history of: Post menopausal status. Cardroom Drawing Runner/Model: Real[employer] Discovery SL (S/N [id number]) Facility LSC value of 0.022 for the [...] Carole Sanchez M.D. TW: TW Report ID: [id number] Reading Location: [id number] Procedure Note SanchezCarole MD - 08/29/2024 EXAM DESCRIPTION: DEXA AXIAL SKELETON BONE DENSITY 1 OR MORE SITES REASON FOR STUDY: 68 y/o year old F with given history of: Post menopausal status. Cardroom Drawing Runner/Model: Real[employer] Discovery SL (S/N [id number]) Facility LSC value of 0.022 for the [...] Carole Sanchez M.D. TW: TW Report ID: [id number] Reading Location: [id number] us Provider Transcribed Order IMG DXA PROCEDURES Fi nal Result * COLONOSCOPY (08/09/2018 10:53 AM CDT) Anatomical Region Laterality Modality Other Narrative Procedure Note Malathi Jamison MD - 08/09/2018 10:53 AM CDT [facility] Patient Name: Sarai Doss Procedure Date: 08/09/2018 10:53 AM Date of : 1955 Admit Type: Outpatient Age: 62 Gender: Female Attending MD: Malathi Jamison M.D. Room: [facility] ENDOSCOPY ROOM 1 Note Status: Addendum Patient [...] passed under direct vision.The Pediatric Colonoscope PCF-H190L [id number] was introduced through the anus and advanced [...] colon K64.8, Other hemorrhoids CPT copyright 2017 [employer]. All rights reserved. The codes documented in this report are preliminary and upon funeral home associate reviewmay be revised to meet current compliance requirements. Recognized by the [place] [employer] for promoting quality [...] Most Recently Relevant to Health Maintenance Insurance [place] MEDICARE ADVANTAGE UHC MEDICARE ADVANTAGE Advance Directives For more information, please contact: [phone] * Full Code (Latest Code Status on File) Date Activated Date Inactivated Comments 08/09/2018 10:09 AM 08/09/2018 4:24 PM * Full Code Date Activated Date Inactivated Comments 08/09/2018 10:09 AM 08/09/2018 10:09 AM Care Teams Shipping Weigher Relationship Specialty Start Date End Date Terrie Sheridan NP [address] [place] [address] DR WHEELER [address] [address] PCP - General Nurse Practitioner 07/05/24
--- OUTSIDE RECORDS SUMMARY | 2024-10-01 17:58 | XMS_ITS | Clinical Summary ---
Author Organization [facility] Address [address] [place] [address] Care Team Providers Care Handle And Vent Machine Operator Name Role Phone Kaylan Gray MD Primary Care Provider [phone] Source Comments [facility],non-owned Affiliates and Associated Physician Practices is amultiple site organization consisting of ambulatory clinics and hospital sitesin [place], [place], [place] and [place]. This disclosure is being madepursuant to the Care Everywhere program and may not contain all information available regarding this patient. Last updated 18.[facility] Allergies Active Allergy Reactions Criticality Noted Date Comments Codeine Other Low 02/11/2017 Makes pt feels real sick Medications * Be aware that medications may not be up to date on this document. Alwaysverify current medications with the patient. topiramate (TOPAMAX) 25 MG tablet Take 25 mg by mouth BID. 60 tablet 3 05/20/2017 Active SUMAtriptan (IMITREX) 50 MG tablet Take 50 mg by mouth. 10 tablet 3 05/20/2017 Active LORazepam (ATIVAN) 0.5 MG tablet 5 tablet 0 04/22/2017 Active hydrocortisone (CORTEF) 5 MG tablet 90 tablet 2 03/24/2017 Active Saline (SODIUM CHLORIDE) 0.65 % [place] 1 spray into the nose 4X/day. 1 bottles 3 03/25/2017 Active amoxicillin-cla vulanate (AUGMENTIN) 875-125 MG tablet Take 1 tablet by mouth 2 times daily with morning and evening meal. 28 tablet 0 03/24/2017 Active Docusate Sodium (DSS) 100 MG Take 100 mg by mouth BID. 60 capsule 0 03/24/2017 Active HYDROcodone-shady taminophen (NORCO) 5-325 MG tablet Take 2 tablets by mouth q4h PRN. 60 tablet 0 03/24/2017 Active omeprazole (PRILOSEC) 10 MG capsule Take 20 mg by mouth DAILY. 02/25/2017 Active simvastatin (ZOCOR) 40 MG tablet 40 mg. 01/20/2017 Active carvedilol (COREG) 12.5 MG tablet BID. 01/20/2017 Active cloNIDine (CATAPRES) 0.2 MG tablet Take 0.2 mg by mouth TID. 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 Abnormal findings on diagnos tic imaging of skull and head, not elsewhere classified 02/25/2017 Social History Tobacco Use Types Packs/Day Years Used Date Smoking Tobacco: Former Cigarettes Q uit: 05/03/2008 Smokeless Tobacco: Never Alcohol Use Standard Drinks/Week Comments Yes 0 (1 standard drink = 0.6 oz pur e alcohol) Comments Unknown Sex and Gender Information Value Date Recorded Sex Assigned at Not on file Legal Sex Female 5:17 PM TELEVISION ENGINEERING TEACHER Gender Identity Not on file Sexual Orientation Not on file Last Filed Vital Signs Vital Sign Reading Time Taken Comments Blood Pressure 102/71 05/20/2017 7:59 AM TELEVISION ENGINEERING TEACHER Pulse 67 05/20/2017 7:59 AM TELEVISION ENGINEERING TEACHER Temperature 36.9 C (98.4 F) 03/25/2017 8:49 AM TELEVISION ENGINEERING TEACHER Respiratory Rate 18 03/25/2017 8:49 AM TELEVISION ENGINEERING TEACHER Oxygen Saturation 96% 03/25/2017 8:49 AM TELEVISION ENGINEERING TEACHER Inhaled Oxygen Concentration - - Weight 78.5 kg (173 lb) 05/20/2017 7:59 AM TELEVISION ENGINEERING TEACHER Height 147.3 cm (4' 10) 05/20/2017 7:59 AM TELEVISION ENGINEERING TEACHER Body Mass Index 36.16 05/20/2017 7:59 AM TELEVISION ENGINEERING TEACHER Plan of Treatment Health Maintenance Due Date Last Done Comments BONE DENSITY TESTING 1955 COLOGUARD (AGES 45-75) - COLON CA SCREENING [address] COLONOGRAPHY - COLON CA SCREENING 1955 FIT - COLON CA SCREENING 1955 FLEX SIG - COLON CA SCREENING 1955 HEPATITIS C SCREENING 10/08/1973 DTAP/TDAP/TD VACCINES (1 - Tdap) 10/12/1974 PNEUMOCOCCAL VACCINE 50+ (1 of 1 - PCV) 10/12/2005 ZOSTER VACCINE (1 of 2) 10/12/2005 COVID-19 VACCINE (1 - season) 2024 DEPRESSION SCREENING 05/03/2024 INFLUENZA VACCINE (Season Ended) 2025 MAMMOGRAM 04/22/2025 04/22/2023, 04/03, 11/18/2020, Additional history exists COLONOSCOPY - COLON CA SCREENING 08/09/2028 08/09/2018 Colorectal Cancer Screening 08/09/2028 Respiratory Syncytial Virus (RSV) Vaccine Pt: or over 60 yrs (1 - 1-dose 75+ series) 10/12/2030 HEPATITIS B VACCINE Aged Out No longe r eligible based on patient's age to complete this topic HIB VACCINE Aged Out No longer eligi ble based on patient's age to complete this topic HPV VACCINE Aged Out No longer eligi ble based on patient's age to complete this topic MENINGOCOCCAL (Group B) VACCINE SHARED DECISION-MAKING Aged Out No longer eligible based on patient's age to complete this topic MENINGOCOCCAL GROUPS A/C/Y/W VACCINE Aged Out No longer eligible based on patient's age to complete this topic Insurance Member Subscriber Plan / Payer (Ef fective 2017-Present) Name:Sarai Doss Relation to Subscriber:Self Name:SARAI DOSS Payer ID:[id number] (NAIC) Type:PPO Address: [facility] [address] [place] [id number] [place] Care Teams Handle And Vent Machine Operator Relationship Specialty Start Date End Date Kaylan Gray MD [address] [place] [address] PCP - General 01/29/17
--- OUTSIDE RECORDS SUMMARY | 2024-10-01 17:59 | XMS_ITS | Clinical Summary ---
Author Organization [facility] Address [address] [place] [address] Phone Care Team Providers Care Robotics Specialist Name Role Phone Kaylan Gray MD Primary Care Provider [phone] Allergies Active Allergy Reactions Criticality Noted Date Comments Codeine Nausea 12/22/2016 Medications carvedilol (COREG) 12.5 MG Tablet Take 12.5 mg by mouth 2 times daily. Active simvastatin (ZOCOR) 40 MG Tablet Take 40 mg by mouth every evening. Active topiramate (TOPAMAX) 100 MG Tablet 2 Active traZODone (DESYREL) 50 MG Tablet Take 50 mg by mouth nightly. Active aspirin 81 MG Chewable Tablet Take 1 Tablet by mouth daily. 4 Active losartan (COZAAR) 50 MG Tablet Take 1 Tablet by mouth daily. 90 Tablet 4 Active polyethylene glycol (GLYCOLAX, MIRALAX) 17 g PackIndications :Constipation Take 1 Packet by mouth 2 times daily as needed for Constipation - 1st line. Dissolve in 4-8 oz of liquid. Indications: Constipation 90 Packet 4 Active senna (SENOKOT) 8.6 MG Tablet Take 1 Tablet by mouth 2 times daily as needed for Constipation - 2nd line. 30 Tablet 4 Active Active Problems Problem Noted Date Diagnosed Date Chest pain 12/20/2023 Dizziness 12/20/2023 Hypokalemia 12/20/2023 Hypertension 12/20/2023 Hyperlipidemia 12/20/2023 Anxiety 12/20/2023 Family History Medical History Relation Name Comments Cancer Father Heart Attack Father Cancer Mother Heart Attack Mother Hypertension Mother Relation Name Status Comments Father Mother Social History Tobacco Use Types Packs/Day Years Used Date Smoking Tobacco: Former Cigarettes Q uit: 05/03/2008 Smokeless Tobacco: Never Tobacco Cessation:Counseling Given: No Alcohol Use Standard Drinks/Week Comments Not Currently 0 (1 standard drink = 0.6 oz pur e alcohol) rare [place] Utilities Answer Date Recorded In the past 12 months has e electric, gas, oil, or water company threatened to shut off services in your home? No 12/21/2023 Social Connection and Isolat ion Panel [NHANES] Answer Date Recorded In a typical week, how many times do you talk on the phone with family, friends, or neighbors? More than three times a week 12/21/2023 How often do you get togethe r with friends or relatives? More than three times a week 12/21/2023 How often do you attend chur ch or christian services? Never 12/21/2023 Do you belong to any clubs o r organizations such as congregational groups, unions, fraternal or athletic groups, or school groups? No 12/21/2023 How often do you attend meet ings of the clubs or organizations you belong to? Never 12/21/2023 Are you , , di vorced, , never , or living with a partner? 12/21/2023 AUDIT-C Answer Date Recorded Q1: How often do you have a drink containing alc ohol? Monthly or less 12/21/2023 Q2: How many drinks containi ng alcohol do you have on a typical day when you are drinking? 1 or 2 12/21/2023 Q3: How often do you have si x or more drinks on one occasion? Never 12/21/2023 Overall Financial Resource Strain (CARDIA) Answe r Date Recorded How hard is it for you to pa y for the very basics like food, housing, medical care, and heating? Not hard at all 12/21/2023 [facility] of Occupat ional Health - Occupational Stress Questionnaire Answer Date Recorded Do you feel stress - tense, restless, nervous, or anxious, or unable to sleep at night because your mind is troubled all the time - these days? Only a little 12/21/2023 Exercise Vital Sign Answer Date Recorde d On average, how many days pe r week do you engage in moderate to strenuous exercise (like a brisk walk)? 7 days 12/21/2023 On average, how many minutes do you engage in exercise at this level? 20 min 12/21/2023 Hunger Vital Sign Answer Date Recorded Within the past 12 months, y ou worried that your food would run out before you got the money to buy more. Never true 12/21/19 Within the past 12 months, t he food you bought just didn't last and you didn't have money to get more. Never true 12/21/2023 PRAPARE - Transportation Answer Date Re corded In the past 12 months, has l ack of transportation kept you from medical appointments or from getting medications? No 12/02 In the past 12 months, has l ack of transportation kept you from meetings, work, or from getting things needed for daily living? No 12/21/2023 Housing Stability Vital Sign Answer Elvis e Recorded In the last 12 months, was t here a time when you were not able to pay the mortgage or rent on time? No 12/21/2023 In the past 12 months, how m any times have you moved where you were living? 0 12/21/2023 At any time in the past [address] m [facility], were you homeless or living in a detention (including now)? No 12/21/2023 Sexually Active Control Partners Comments Yes Male Comments No Sex and Gender Information Value Date Recorded Sex Assigned at Not on file Legal Sex Female 7:29 PM CDT Gender Identity Not on file Sexual Orientation Not on file Last Filed Vital Signs Vital Sign Reading Time Taken Comments Blood Pressure 127/78 12/21/2023 10:40 AM CDT Pulse 110 12/21/2023 10:40 AM CDT Temperature 36.5 C (97.7 F) 12/21/2023 10:40 AM CDT Respiratory Rate 18 12/21/2023 10:40 AM CDT Oxygen Saturation 95% 12/21/2023 10:40 AM CDT Inhaled Oxygen Concentration - - Weight 54.4 kg (120 lb) 12/21/2023 10:36 AM CDT Height 147.3 cm (4' 10) 12/21/2023 10:36 AM CDT Body Mass Index 25.08 12/21/2023 10:36 AM CDT Plan of Treatment Health Maintenance Due Date Last Done Comments DEXA Bone Density 1955 Hepatitis C Virus (HCV) Screening 1955 Cologuard 10/12/2005 Immunochemical Fecal Occult Blood 10/12/2005 Zoster Immunization (1 of 2) 10/12/2005 Pneumococcal Immunization (50+ years) (2 of 2 - PPSV23) 10/28/2021 10/28/2020 Influenza Immunization (#1) 01/02/202402/01, 02/03/2022, 02/25/2021, Additional history exists SARS-COV-2 Immunization ( season) 2024 03/16/2022, 02/25/2021, 07/05/2020, Additional history exists Mammogram 04/22/2024 04/22/2023, 10/31, 11/17/2017, Additional history exists Colonoscopy 08/09/2028 08/09/2018 Colorectal Cancer Screening 08/09/2028 08/09/2018 DTaP/Tdap/Td Immunization Discontinued 2018, 08/31/2013, 05/03/2011 TdaP Immunization Completed 07/19/2018 Pneumococcal Immunization Combined Discontinued 10/28/2020 Respiratory Syncytial Virus (RSV) Immunization (Adult) Completed 02/22/2023 Hepatitis B Immunization Aged Out No longer eligible based on patient's age to complete this topic Meningococcal Immunization (ACWY) Aged Out No longer eligible based on patient's age to complete this topic Rotavirus Immunization Aged Out No lo nger eligible based on patient's age to complete this topic Procedures Procedure Name Priority Date/Time Associated Diagnosis Comments MAR SCREENING BILATERAL DIGITAL W CAD Routine 02/25/2016 11:57 AM CDT Visit for screening mammogram from Last 3 Months or Most Recently Relevant to Health Maintenance Results * MAR SCREENING BILATERAL DIGITAL W CAD (02/25/2016 11:57 AM CDT) Anatomical Region Laterality Modality breast Bilateral Mammography 02/25/2016 11:4 3 AM CDT Narrative 02/27/2016 9:32 AM CDT - MAR SCREENING BILATERAL DIGITAL W CAD BILATERAL DIGITAL SCREENING MAMMOGRAM WITH CAD WITH MEDIOLATERAL OBLIQUE CRANIOCAUDAL: 02/25/2016 The study was acquired using digital technology and interpreted from soft copy. Current study was also evaluated with ICAD version 7.2. CLINICAL: Routine screening. Patient has no complaints. No personal history of cancer. No family history of breast cancer. COMPARISONS: Comparison is made to exams dated: 01/14/2015, 09/11/2010, and 11/08/2006 [facility]. BREAST TISSUE:There are scattered fibroglandular densities in both breasts. FINDINGS: No significant masses, calcifications, or other findings are seen in either breast. There has been no significant interval change. IMPRESSION: BI-RAD 1 NEGATIVE There is no mammographic evidence of malignancy. A 1 year screening mammogram is recommended. The patient has been or will be contacted. The patient will be entered into a reminder system with a target due date of 1 year for her next screening exam. Electronically signed by: Jose rodriguez/arnold:02/26/2016 16:23:58 Concrete Worker: Dee Guzman([place]), [facility] letter sent: Normal Exam Reading location: [facility] BI-RADS: 1 Negative Procedure Note Jose Jerry MD - 02/27/2016 - MAR SCREENING BILATERAL DIGITAL W CAD BILATERAL DIGITAL SCREENING MAMMOGRAM WITH CAD WITH MEDIOLATERAL OBLIQUE CRANIOCAUDAL: 02/25/2016 The study was acquired using digital technology and interpreted from soft copy. Current study was also evaluated with ICAD version 7.2. CLINICAL: Routine screening. Patient has no complaints. No personal history of cancer. No family history of breast cancer. COMPARISONS: Comparison is made to exams dated: 01/14/2015, 09/11/2010, and 11/08/2006 [facility]. BREAST TISSUE:There are scattered fibroglandular densities in both breasts. FINDINGS: No significant masses, calcifications, or other findings are seen in either breast. There has been no significant interval change. IMPRESSION: BI-RAD 1 NEGATIVE There is no mammographic evidence of malignancy. A 1 year screening mammogram is recommended. The patient has been or will be contacted. The patient will be entered into a reminder system with a target due date of 1 year for her next screening exam. Electronically signed by: Jose Jerry M.D. bs/penrad:02/26/2016 16:23:58 Concrete Worker: Dee Guzman([place]), [facility] letter sent: Normal Exam Reading location: [facility] BI-RADS: 1 Negative us Kaylan Gray MD IMG MAMMO ORDERABLES Final Re sult from Last 3 Months or Most Recently Relevant to Health Maintenance Insurance [facility]IC[facility] Directives * Full Code (Latest Code Status on File) Date Activated Date Inactivated Comments 12/20/2023 8:00 PM CPR-Full Treat ment: FULL ARREST: Attempt Resuscitation/CPR wit intubation and mechanical ventilation. PRE-ARREST: Use entire range of life support measures to stabilize the patient. Care Teams Robotics Specialist Relationship Specialty Start Date End Date Kaylan Gray MD [address] [place] [address] PCP - General Internal Medicine 02/12/16
--- OUTSIDE RECORDS SUMMARY | 2024-10-01 17:59 | XMS_ITS | Data Portability ---
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 Plan of Treatment Reminders Order Date Submit Date Provider Last Modified By Organization Details Last Modified Time Details Appointments MEDICARE WELLNESS VISIT 2024 08:30A [place] SHERIDAN, BRUNO- Not available Not available Not available Lab TSH + free T4, serum 2024 025 [facility], [address] [place] [address] [address], [address], 07/05/2024 04:13:21 lipid panel, serum 2024 025 [facility], [address] [facility], [place], [address], 07/05/2024 04:13:23 CMP, serum or plasma 2024 025 [facility], [address] [place] [address] 2, [place], [address], 07/05/2024 04:13:24 CBC w/ auto diff 2024 025 [facility], [address] [facility], [facility] 2, [place], [address], 07/05/2024 04:13:27 HbA1c (hemoglob in A1c), blood 2024 025 [facility], [address] [place] [address] 2, [place], [address], 07/05/2024 04:13:25 CBC w/ auto diff 2023 024 [facility], [address] [facility], [facility] 2, [place], [address], 09/09/2023 20:09:06 CMP, serum or plasma 2023 024 [facility], [address] [facility], [facility] 2, [place], [address], 09/09/2023 20:09:06 lipid panel, serum 2023 024 [facility], [address] [facility], [facility] 2, [place], [address], 09/09/2023 20:09:05 Referral gastroent erologist referral 2024 025 lakeisha Jamison, [address] [place] [address] , [facility] [address], [place], [address], 09/21/2024 09:25:44 Procedures None recorded. Surgeries None recorded. Imaging MAMMO, screening , bilateral 2024 025 [facility], 1 [facility] [place], [address], 08/30/2024 13:20:42 DEXA 2024 025 [facility], 1 [facility] [place], [address], 09/12/2024 14:50:03 MAMMO, screening , digital, bilateral 2022 023 [facility] [address] [facility] [place] [place], [address], 04/22/2023 12:30:38 Medication Orders simvastat in 40 mg tablet 2024 025 [facility], [address] [place], [address], 07/04/2024 09:52:51 trazodone 50 mg tablet 2024 025 [facility], [address] [place] [address], [address], 07/04/2024 09:52:49 topiramat e 100 mg tablet 2024 025 [facility], [address] [place] [address], [id number], 07/04/2024 09:52:50 losartan 50 mg-hydroc hlorothia zide 12.5 mg tablet 2023 024 [facility], [address] [place] [address], [address], 03/16/2024 09:26:09 carvedilo l 12.5 mg tablet 2023 024 [facility], [address] [place] [address], [address], 03/16/2024 09:26:03 venlafaxi ne ER 75 mg capsule,e xtended release 24 hr 2023 024 [facility], [address] [place] [address], [address], 03/16/2024 09:17:08 clonidine HCl 0.[address] [facility], [address] [place] [address], [id number], 03/16/2024 09:21:10 Patient TargetsNo targets recorded. Patient Instructions Encounter Date Encounter Id Patient Instructions Last Modified By Organization Details Last Modified Time 03/04/2023 [id number] f/u in 6month nsuthan Not available 1 05/04/2022 09:25:54 05/28/2023 [id number] keep f/u nsuthan Not available 05/28 14:40:20 09/09/2023 [id number] A healthy lifestyle: care instructions nsuthan Not available 09/09/2023 08:59:31 f/u in 6 month nsuthan Not available 0 09/09/2023 09:01:44 03/16/2024 [id number] f/u in 3month nsuthan Not available 1 05/16/2023 09:25:52 07/04/2024 [id number] A healthy lifestyle: care instructions [email or web address] Not available 07/04/2024 09:52:43 Plan of care has been discussed with patient including expected therapeutic benefits and potential side effects of prescribed medication and treatments. Patient verbalizes understanding and is in agreement with the plan of care. Patient was instructed to keep all scheduled appointments and contact the clinic for any additional problems. Health Maintenance: - CRC screening (45-75): 2018, due for repeat - Osteoporosis screening: Due at 65. - Lipid screening (>45 unless additional risk factors): ordered - HIV : Declined - HepC: Declined -Eye exam: 2023 -Dental Exam: endentulous - Immunizations: - Influenza: 01/19/24 - Prevnar 20: Due at 65. - Tdap/Td ([id number]): 07/19/18 - Zoster (>60):Due at 60. 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 for Screening for malignant neoplasm of colon Referring Physician: Terrie Sheridan, Family Medicine, Encounter Date: 07/04/2024 Results Created Date Observation Date Name Description Value Unit Range Abnormal Flag Note LastModifiedBy Organization Detail LastModifiedTime 09/09/19 24 09/09/2023 LIPID PANEL cholesterol, total 176 mg/dL 100-19 9 Not Available [facility] [address] [place], [address], 09/09/2023 20:09:05 09/09/19 24 09/09/2023 LIPID PANEL triglyceride s 98 mg/dL 0-149 Not Available [facility] Department [address] [place], [address], 09/09/2023 20:09:05 09/09/19 24 09/09/2023 LIPID PANEL HDL cholesterol 53 mg/dL 40-999 Not Available [facility] Department [address] [place], [address], 09/09/2023 20:09:05 09/09/19 24 09/09/2023 LIPID PANEL VLDL cholesterol fernando 20 mg/dL 5-40 Not Available [facility] Department [address] [place] [address], [address], 09/09/2023 20:09:05 09/09/19 24 09/09/2023 LIPID PANEL LDL chol calc (nih) 117 mg/dL 0-99 above high normal Not Available [facility] Department [address] [place] [address], [address], 09/09/2023 20:09:05 09/09/19 24 09/09/2023 COMP. METAB OLIC PANEL (14) glucose 94 mg/dL 70-99 Not Available [facility] Department [address] [place] [address], [address], 09/09/2023 20:09:06 09/09/19 24 09/09/2023 COMP. METAB OLIC PANEL (14) BUN 15 mg/dL 8-27 Not Available [facility] [address] [place], [address], 09/09/2023 20:09:06 09/09/19 24 09/09/2023 COMP. METAB OLIC PANEL (14) creatinine 0.62 mg/dL 0.76-1 .27 below low normal Not Available [facility] [address] [place], [address], 09/09/2023 20:09:06 09/09/19 24 09/09/2023 COMP. METAB OLIC PANEL (14) eGFR 98 >=60 Units for eGFR value s are mL/mi n/1.7 3 The eGFR Calcu latio n has not been valid ated for patie nts under the age of 18. If test resul ts are displ ayed for a patie nt under the age of 18, disre miguel that value . Not Available [facility] Department [address] [place] [address], [address], 09/09/2023 20:09:06 09/09/19 24 09/09/2023 COMP. METAB OLIC PANEL (14) BUN/creatini ne ratio 24 10- Not Available [facility] Department [address] [place] [address], [address], 09/09/2023 20:09:06 09/09/19 24 09/09/2023 COMP. METAB OLIC PANEL (14) sodium 144 mmol/ L 134-14 4 Not Available [facility] [address] [place] [address], [address], 09/09/2023 20:09:06 09/09/19 24 09/09/2023 COMP. METAB OLIC PANEL (14) potassium 4.0 mmol/ L 3.5-5. 2 Not Available [facility] [address] [place] [address], [address], 09/09/2023 20:09:06 09/09/19 24 09/09/2023 COMP. METAB OLIC PANEL (14) chloride 110 mmol/ L 96-106 above high normal Not Available [facility] [address] [place] [address], [address], 09/09/2023 20:09:06 09/09/19 24 09/09/2023 COMP. METAB OLIC PANEL (14) carbon dioxide, total 23 mmol/ L 20-29 Not Available [facility] [address] [place] [address], [address], 09/09/2023 20:09:06 09/09/19 24 09/09/2023 COMP. METAB OLIC PANEL (14) calcium 9.2 mg/dL 8.7-10 .3 Not Available [facility] [address] [place], [address], 09/09/2023 20:09:06 09/09/19 24 09/09/2023 COMP. METAB OLIC PANEL (14) protein, total 6.6 g/dL 6.0-8. 5 Not Available [facility] [address] [place], [address], 09/09/2023 20:09:06 09/09/19 24 09/09/2023 COMP. METAB OLIC PANEL (14) albumin 4.1 g/dL 3.8-4. 8 Not Available [facility] [address] [place], [address], 09/09/2023 20:09:06 09/09/19 24 09/09/2023 COMP. METAB OLIC PANEL (14) globulin, total 2.5 g/dL 1.5-4. 5 Not Available [facility] [address] [place], [address], 09/09/2023 20:09:06 09/09/19 24 09/09/2023 COMP. METAB OLIC PANEL (14) A/G ratio 2.0 1.2-2. 2 Not Available [facility] [address] [place], [address], 09/09/2023 20:09:06 09/09/19 24 09/09/2023 COMP. METAB OLIC PANEL (14) bilirubin, total 0.3 mg/dL 0.0-1. 2 Not Available [facility] [address] [place], [address], 09/09/2023 20:09:06 09/09/19 24 09/09/2023 COMP. METAB OLIC PANEL (14) alkaline phosphatase 89 IU/L 44-121 Not Available [facility] [address] [place], [address], 09/09/2023 20:09:06 09/09/19 24 09/09/2023 COMP. METAB OLIC PANEL (14) AST (SGOT) 18 IU/L 0-40 Not Available [facility] [address] [place], [address], 09/09/2023 20:09:06 09/09/19 24 09/09/2023 COMP. METAB OLIC PANEL (14) ALT (SGPT) 12 IU/L 0-32 Not Available [facility] [address] [place], [address], 09/09/2023 20:09:06 09/09/19 24 09/09/2023 CBC WITH DIFFE RENTI AL/PL ATELE T WBC 4.7 x10e3 /uL 3.4-10 .8 Not Available [facility] [address] [place], [address], 09/09/2023 20:09:06 09/09/19 24 09/09/2023 CBC WITH DIFFE RENTI AL/PL ATELE T RBC 4.72 x10e6 /uL 3.77-5 .28 Not Available [facility] [address] [place], [address], 09/09/2023 20:09:06 09/09/19 24 09/09/2023 CBC WITH DIFFE RENTI AL/PL ATELE T hemoglobin 12.9 g/dL 11.1-1 5.9 Not Available [facility] [address] [place], [address], 09/09/2023 20:09:06 09/09/19 24 09/09/2023 CBC WITH DIFFE RENTI AL/PL ATELE T hematocrit 42.1 % 34.0-4 6.6 Not Available [facility] [address] [place], [address], 09/09/2023 20:09:06 09/09/19 24 09/09/2023 CBC WITH DIFFE RENTI AL/PL ATELE T MCV 89 fL 79-97 Not Available [facility] [address] [place], [address], 09/09/2023 20:09:06 09/09/19 24 09/09/2023 CBC WITH DIFFE RENTI AL/PL ATELE T MCH 27.3 pg 26.6-3 3.0 Not Available [facility] [address] [place], [address], 09/09/2023 20:09:06 09/09/19 24 09/09/2023 CBC WITH DIFFE RENTI AL/PL ATELE T MCHC 30.6 g/dL 31.5-3 5.7 below low normal Not Available [facility] [address] [place], [address], 09/09/2023 20:09:06 09/09/19 24 09/09/2023 CBC WITH DIFFE RENTI AL/PL ATELE T RDW 14.1 % 11.5-1 4.5 Not Available [facility] [address] [place], [address], 09/09/2023 20:09:06 09/09/19 24 09/09/2023 CBC WITH DIFFE RENTI AL/PL ATELE T platelets 217 x10e3 /uL 150-45 0 Not Available [facility] [address] [place], [address], 09/09/2023 20:09:06 09/09/19 24 09/09/2023 CBC WITH DIFFE RENTI AL/PL ATELE T neutrophils 47 % notest b. Not Available [facility] [address] [place], [address], 09/09/2023 20:09:06 09/09/19 24 09/09/2023 CBC WITH DIFFE RENTI AL/PL ATELE T lymphs 41 % notest b. Not Available [facility] [address] [place], [address], 09/09/2023 20:09:06 09/09/19 24 09/09/2023 CBC WITH DIFFE RENTI AL/PL ATELE T monocytes 9 % notest b. Not Available [facility] [address] [place], [address], 09/09/2023 20:09:06 09/09/19 24 09/09/2023 CBC WITH DIFFE RENTI AL/PL ATELE T eos 3 % notest b. Not Available [facility] [address] [place], [address], 09/09/2023 20:09:06 09/09/19 24 09/09/2023 CBC WITH DIFFE RENTI AL/PL ATELE T basos 1 % notest b. Not Available [facility] [address] [place], [address], 09/09/2023 20:09:06 09/09/19 24 09/09/2023 CBC WITH DIFFE RENTI AL/PL ATELE T neutrophils (absolute) 2.2 x10e3 /uL 1.4-7. 0 Not Available [facility] [address] [place], [address], 09/09/2023 20:09:06 09/09/19 24 09/09/2023 CBC WITH DIFFE RENTI AL/PL ATELE T lymphs (absolute) 1.9 x10e3 /uL 0.7-3. 1 Not Available [facility] [address] [place], [address], 09/09/2023 20:09:06 09/09/19 24 09/09/2023 CBC WITH DIFFE RENTI AL/PL ATELE T monocytes(ab solute) 0.4 x10e3 /uL 0.1-0. 9 Not Available [facility] [address] [place], [address], 09/09/2023 20:09:06 09/09/19 24 09/09/2023 CBC WITH DIFFE RENTI AL/PL ATELE T eos (absolute) 0.1 x10e3 /uL 0.0-0. 4 Not Available [facility] [address] [place], [address], 09/09/2023 20:09:06 09/09/19 24 09/09/2023 CBC WITH DIFFE RENTI AL/PL ATELE T baso (absolute) 0.0 x10e3 /uL 0.0-0. 2 Not Available [facility] [address] [place], [address], 09/09/2023 20:09:06 09/09/19 24 09/09/2023 CBC WITH DIFFE RENTI AL/PL ATELE T immature granulocytes 0.2 % notest b. Not Available [facility] [address] [place], [address], 09/09/2023 20:09:06 09/09/19 24 09/09/2023 CBC WITH DIFFE RENTI AL/PL ATELE T immature grans (abs) 0.0 x10e3 /uL 0.0-0. 1 Not Available [facility] [address] [place], [address], 09/09/2023 20:09:06 09/09/19 24 09/09/2023 CBC WITH DIFFE RENTI AL/PL ATELE T NRBC 0 % 0-0 Not Available [facility] [address] [place], [address], 09/09/2023 20:09:06 12/20/19 24 12/20/2023 Natri ureti c pepti de B [Mass /volu me] in Serum or Plasm a natriuretic peptide B [mass/volume ] in serum or plasma 250 pg/mL high: 100pg/ mL high B TYPE NATRI URETI C PEPTI DE 250 (H) <100 pg/mL 12/19 9:06 PM CDT [facility] [employer] Not Available Not Available 09/12/2024 11:55:05 12/20/19 24 12/20/2023 Natri ureti c pepti de B [Mass /volu me] in Serum or Plasm a interpretati on and review of laboratory results Abnorm al Not Available Not Available 11:55:05 12/20/19 24 12/20/2023 Influ clement virus A and B and SARS- CoV-2 (COVI D-19) and Respi rator y syncy tial virus RNA panel - Respi rator y syste m speci men by DANA with probe detec tion influenza virus A RNA [presence] in nasopharynx by DANA with probe detection Negati ve text: negati ve, error FLU A Negat betzy Negat betzy, Error 12/19 5:37 PM CDT [facility] Not Available Not Available 09/12/2024 11:55:05 12/20/19 24 12/20/2023 Influ clement virus A and B and SARS- CoV-2 (COVI D-19) and Respi rator y syncy tial virus RNA panel - Respi rator y syste m speci men by DANA with probe detec tion influenza virus B RNA [presence] in nasopharynx by DANA with probe detection Negati ve text: negati ve FLU B Negat betzy Negat betzy 12/19 5:37 PM CDT [facility] [employer] Not Available Not Available 09/12/2024 11:55:05 12/20/19 24 12/20/2023 Influ clement virus A and B and SARS- CoV-2 (COVI D-19) and Respi rator y syncy tial virus RNA panel - Respi rator y syste m speci men by DANA with probe detec tion respiratory syncytial virus RNA [presence] in respiratory system specimen by DANA with probe detection Negati ve text: negati ve RESP SYNC VIRUS Negat betzy Negat betzy 12/19 5:37 PM [facility] [employer] Not Available Not Available 09/12/2024 11:55:05 12/20/19 24 12/20/2023 Influ clement virus A and B and SARS- CoV-2 (COVI D-19) and Respi rator y syncy tial virus RNA panel - Respi rator y syste m speci men by DANA with probe detec tion sars-cov-2 (covid-19) N gene [presence] in specimen by DANA with probe detection NOT DETECT ED text: (refer ence range for this test IS not detect ed) SARSC OV2 NOT DETEC JESSICA (Refe rence Range for this test is Not Detec jessica) 12/19 5:37 PM CDT [facility] Not Available Not Available 09/12/2024 11:55:05 12/20/19 24 12/20/2023 Influ clement virus A and B and SARS- CoV-2 (COVI D-19) and Respi rator y syncy tial virus RNA panel - Respi rator y syste m speci men by DANA with probe detec tion Unknown Analyte This test has not been FDA cleare d or approv ed; the test has been author ized by FDA under an Emerge ncy Use Author kadeem n (EUA) for use by aubrie minaya certif ied under the CLIA that meet the requir ements to perfor m modera te, high or waived comple xity tests. Author ized Fact Sheets about this test for provid ers and patien ts are availa ble at: https: //www. fda.go v/medi fernando-de vices/ emerge ncy-si tuatio ns-med ical-d evices /emerg ency-u se-aut horiza tions This test has not been FDA clear ed or appro august; the test has been autho rized by FDA under an Emerg ency Use Autho rizat ion (EUA) for use by labor atori es certi fied under the CLIA that meet the requi remen ts to perfo rm moder ate, high or waive d compl exity tests . Autho rized Fact Sheet s about this test for provi ders and patie nts are avail able at: https ://jared w.fda .gov/ medic al-de vices /eran gency -situ ation s-med ical- devic es/em ergen cy-us e-aut horiz ation s Not Available Not Available 09/12/2024 11:55:05 12/20/19 24 12/20/2023 Influ clement virus A and B and SARS- CoV-2 (COVI D-19) and Respi rator y syncy tial virus RNA panel - Respi rator y syste m speci men by DANA with probe detec tion interpretati on and review of laboratory results Normal Not Available Not Available 08/31 11:55:05 12/20/19 24 12/20/2023 Fibri n D-dim er FEU [Mass /volu me] in Plate let poor plasm a fibrin D-dimer feu [mass/volume ] in platelet poor plasma 0.42 text: <0.50 mcg/mL feu D DIMER 0.42 <0.50 mcg/m L FEU 12/19 5:28 PM CDT [facility] Not Available Not Available 09/12/2024 11:55:05 12/20/19 24 12/20/2023 Fibri n D-dim er FEU [Mass /volu me] in Plate let poor plasm a Unknown Analyte The FDA has approv ed this method to exclud e the diagno sis of DVT and/or PE at the cutoff value of <0.50 mcg/mL FEU. The FDA has appro august this metho d to exclu de the diagn osis of DVT and/o r PE at the cutof f value of <0.50 mcg/m L FEU. Not Available Not Available 09/12/2024 11:55:05 12/20/19 24 12/20/2023 Fibri n D-dim er FEU [Mass /volu me] in Plate let poor plasm a interpretati on and review of laboratory results Normal Not Available Not Available 08/31 11:55:05 12/20/19 24 12/20/2023 Thyro tropi n [Unit s/vol ume] in Serum or Plasm a thyrotropin [units/volum e] in serum or plasma 0.8 text: 0.300 - 5.000 mIU/L TSH 0.800 0.300 - 5.000 mIU/L 12/19 8:37 PM CDT [facility] Not Available Not Available 09/12/2024 11:55:05 12/20/19 24 12/20/2023 Thyro tropi n [Unit s/vol ume] in Serum or Plasm a interpretati on and review of laboratory results Normal Not Available Not Available 08/31 11:55:05 12/20/19 24 12/20/2023 Compr ehens betzy metab olic 1999 panel - Serum or Plasm a sodium [moles/volum e] in serum or plasma 144 mmol/ L low: 136mmo l/Lhig h: 145mmo l/L SODIU M 144 136 - 145 mmol/ L 12/19 2:43 PM CDT [facility] Not Available Not Available 09/12/2024 11:55:05 12/20/19 24 12/20/2023 Compr ehens betzy metab olic 2000 panel - Serum or Plasm a potassium [moles/volum e] in serum or plasma 3.4 mmol/ L low: 3.5mmo l/Lhig h: 5.1mmo l/L low POTAS SIUM 3.4 (L) 3.5 - 5.1 mmol/ L 12/19 2:43 PM CDT [facility] Not Available Not Available 09/12/2024 11:55:05 12/20/19 24 12/20/2023 Compr ehens betzy metab olic 2000 panel - Serum or Plasm a chloride [moles/volum e] in serum or plasma 113 mmol/ L low: 98mmol /Lhigh : 107mmo l/L high CHLOR ALAINA 113 (H) 98 - 107 mmol/ L 12/19 2:43 PM CDT [facility] Not Available Not Available 09/12/2024 11:55:05 12/20/19 24 12/20/2023 Compr ehens betzy metab olic 2000 panel - Serum or Plasm a carbon dioxide, total [moles/volum e] in serum or plasma 24 mmol/ L low: 22mmol /Lhigh : 30mmol /L CO2, VENOU S 24 22 - 30 mmol/ L 12/19 2:43 PM CDT [facility] Not Available Not Available 09/12/2024 11:55:05 12/20/19 24 12/20/2023 Compr ehens betzy metab olic 2000 panel - Serum or Plasm a anion gap in serum or plasma by calculation 10.4 mmol/ L high: 18mmol /L ANION GAP 10.4 <18.0 mmol/ L 12/19 2:43 PM CDT [facility] Not Available Not Available 09/12/2024 11:55:05 12/20/19 24 12/20/2023 Compr ehens betzy metab olic 2000 panel - Serum or Plasm a glucose [mass/volume ] in serum or plasma 91 mg/dL low: 70mg/d Lhigh: 99mg/d L GLUCO SE 91 70 - 99 mg/dL 12/19 2:43 PM CDT [facility] Not Available Not Available 09/12/2024 11:55:05 12/20/19 24 12/20/2023 Compr ehens betzy metab olic 2000 panel - Serum or Plasm a urea nitrogen [mass/volume ] in serum or plasma 11 mg/dL low: 10mg/d Lhigh: 20mg/d L BUN 11 10 - 20 mg/dL 12/19 2:43 PM CDT [facility] Not Available Not Available 09/12/2024 11:55:05 12/20/19 24 12/20/2023 Compr ehens betzy metab olic 2000 panel - Serum or Plasm a creatinine [mass/volume ] in serum or plasma 0.74 mg/dL low: 0.6mg/ dLhigh : 1mg/dL CREAT ININE , BLOOD 0.74 0.60 - 1.00 mg/dL 12/19 2:43 PM CDT [facility] Not Available Not Available 09/12/2024 11:55:05 08/19/20 24 12/20/2023 Compr [employer] betzy metab olic 1999 panel - Serum or Plasm a urea nitrogen/cre atinine [mass ratio] in serum or plasma 15 text: 12 - 20 ratio BUN/C REATI NINE RATIO 15 12 - 20 ratio 12/19 2:43 PM CDT [facility] [employer] [facility] Not Available Not Available 09/12/2024 11:55:05 12/20/19 24 12/20/2023 Compr [employer] betzy metab olic 1999 panel - Serum or Plasm a protein [mass/volume ] in serum or plasma 6.2 g/dL low: 6.3g/d Lhigh: 8.2g/d L low TOTAL PROTE IN 6.2 (L) 6.3 - 8.2 g/dL 12/19 2:43 PM CDT [facility] [employer] [facility] Not Available Not Available 09/12/2024 11:55:05 12/20/19 24 12/20/2023 Compr [employer] betzy metab olic 1999 panel - Serum or Plasm a albumin [mass/volume ] in serum or plasma 3.6 g/dL low: 3.5g/d Lhigh: 5g/dL ALBUM IN 3.6 3.5 - 5.0 g/dL 12/19 2:43 PM CDT [facility] [employer] R LAB Not Available Not Available 09/12/2024 11:55:05 12/20/19 24 12/20/2023 Compr [employer] betzy metab olic 1999 panel - Serum or Plasm a albumin/glob ulin [mass ratio] in serum or plasma 1.4 low: 1high: 2.2 A/G RATIO 1.4 1.0 - 2.2 12/19 2:43 PM CDT [facility] [employer] [facility] Not Available Not Available 09/12/2024 11:55:05 12/20/19 24 12/20/2023 Compr [employer] betzy metab olic 1999 panel - Serum or Plasm a calcium [mass/volume ] in serum or plasma 8.6 mg/dL low: 8.7mg/ dLhigh : 10.5mg /dL low CALCI UM 8.6 (L) 8.7 - 10.5 mg/dL 12/19 2:43 PM CDT [facility] Not Available Not Available 09/12/2024 11:55:05 12/20/19 24 12/20/2023 Compr ens betzy metab [facility] 1999 panel - Serum or Plasm a bilirubin.to rahel [mass/volume ] in serum or plasma 0.1 mg/dL low: 0.2mg/ dLhigh : 1.2mg/ dL low T BILI 0.1 (L) 0.2 - 1.2 mg/dL 12/19 2:43 PM CDT [facility] Not Available Not Available 09/12/2024 11:55:05 12/20/19 24 12/20/2023 Compr ens betzy metab ic 1999 panel - Serum or Plasm a aspartate aminotransfe rase [enzymatic activity/vol ume] in serum or plasma 18 U/L low: 5U/Lhi gh: 34U/L SGOT (AST) 18 5 - 34 U/L 12/19 2:43 PM CDT [facility] [facility] Not Available Not Available 09/12/2024 11:55:05 12/20/19 24 12/20/2023 Compr ens betzy metab olic 2000 panel - Serum or Plasm a alanine aminotransfe rase [enzymatic activity/vol ume] in serum or plasma 14 U/L low: 0U/Lhi gh: 55U/L SGPT (ALT) 14 0 - 55 U/L 12/19 2:43 PM CDT [facility] Not Available Not Available 09/12/2024 11:55:05 12/20/19 24 12/20/2023 Compr ehens betzy metab olic 1999 panel - Serum or Plasm a alkaline phosphatase [enzymatic activity/vol ume] in serum or plasma 79 U/L low: 40U/Lh igh: 150U/L ALKAL INE PHOSP HATAS E 79 40 - 150 U/L 12/19 2:43 PM CDT [facility] Not Available Not Available 09/12/2024 11:55:05 12/20/19 24 12/20/2023 Compr ehens betzy metab olic 2000 panel - Serum or Plasm a glomerular filtration rate [volume rate/area] in serum, plasma or blood by creatinine-b ased formula (MDRD)/1.73 sq M among non black population low: 60 GFR, ESTIM ATED >60 >=60 12/19 2:43 PM CDT [facility] [employer] [facility] Not Available Not Available 09/12/2024 11:55:05 12/20/19 24 12/20/2023 Compr ehens betzy metab olic 2000 panel - Serum or Plasm a glomerular filtration rate [volume rate/area] in serum, plasma or blood by creatinine-b ased formula (MDRD)/1.73 sq M among black population low: 60 GFR, EST. AFRIC AN >60 >=60 12/19 2:43 PM CDT [facility] [employer] [facility] Not Available Not Available 09/12/2024 11:55:05 12/20/19 24 12/20/2023 Compr ehens betzy metab olic 2000 panel - Serum or Plasm a glomerular filtration rate [volume rate/area] in serum, plasma or blood by creatinine-b ased formula (MDRD)/1.73 sq M among non black population low: 60 GFR, EST. NONAF RICAN >60 >=60 12/19 2:43 PM CDT [facility] [employer] [facility] Not Available Not Available 09/12/2024 11:55:05 12/20/19 24 12/20/2023 Compr ehens betzy metab olic 2000 panel - Serum or Plasm a interpretati on and review of laboratory results Abnorm al Not Available Not Available 11:55:05 12/21/19 24 12/21/2023 CBC W Auto Diffe phillip al panel - Blood leukocytes [#/volume] in blood by automated count 4.61 text: 4.00 - 12.00 10(3)/ mcL WBC 4.61 4.00 - 12.00 10(3) /mcL 12/20 4:47 AM CDT [facility] Not Available Not Available 09/12/2024 11:55:05 12/21/19 24 12/21/2023 CBC W Auto Diffe renti al panel - Blood erythrocytes [#/volume] in blood by automated count 4.52 text: 3.80 - 5.30 10(6)/ mcL RBC 4.52 3.80 - 5.30 10(6) /mcL 12/20 4:47 AM CDT [facility] Not Available Not Available 09/12/2024 11:55:05 12/21/19 24 12/21/2023 CBC W Auto Diffe renti al panel - Blood hemoglobin [mass/volume ] in blood 12.5 g/dL low: 12g/dL high: 15.8g/ dL HEMOG LOBIN (HGB) 12.5 12.0 - 15.8 g/dL 12/20 4:47 AM CDT [facility] [employer] [facility] Not Available Not Available 09/12/2024 11:55:05 12/21/19 24 12/21/2023 CBC W Auto Diffe renti al panel - Blood hematocrit [volume fraction] of blood by automated count 38.2 % low: 36%hig h: 47% HEMAT OCRIT (HCT) 38.2 36.0 - 47.0 % 12/20 4:47 AM CDT [facility] LAB Not Available Not Available 09/12/2024 11:55:05 12/21/19 24 12/21/2023 CBC W Auto Diffe renti al panel - Blood MCV [entitic mean volume] in red blood cells by automated count 84.5 fL low: 82fLhi gh: 96fL MCV 84.5 82.0 - 96.0 fL 12/20 4:47 AM CDT [facility] LAB Not Available Not Available 09/12/2024 11:55:05 12/21/19 24 12/21/2023 CBC W Auto Diffe renti al panel - Blood MCH [entitic mass] by automated count 27.7 pg low: 26pghi gh: 34pg MCH 27.7 26.0 - 34.0 pg 12/20 4:47 AM CDT [facility] Not Available Not Available 09/12/2024 11:55:05 12/21/19 24 12/21/2023 CBC W Auto Diffe renti al panel - Blood MCHC [entitic mass/volume] in red blood cells by automated count 32.7 g/dL low: 31g/dL high: 36g/dL MCHC 32.7 31.0 - 36.0 g/dL 12/20 4:47 AM CDT [facility] Not Available Not Available 09/12/2024 11:55:05 12/21/19 24 12/21/2023 CBC W Auto Diffe renti al panel - Blood platelets [#/volume] in blood 176 text: 140 - 440 10(3)/ mcL PLATE LET COUNT 176 140 - 440 10(3) /mcL 12/20 4:47 AM CDT [facility] Not Available Not Available 09/12/2024 11:55:05 12/21/19 24 12/21/2023 CBC W Auto Diffe renti al panel - Blood erythrocyte [distwidth] in red blood cells by automated count 13.5 % low: 11.8%h igh: 15.5% RDW 13.5 11.8 - 15.5 % 12/20 4:47 AM CDT [facility] Not Available Not Available 09/12/2024 11:55:05 12/21/19 24 12/21/2023 CBC W Auto Diffe renti al panel - Blood platelet [entitic mean volume] in blood by automated count 9.4 fL low: 9.7fLh igh: 12.4fL low MPV 9.4 (L) 9.7 - 12.4 fL 12/20 4:47 AM CDT [facility] Not Available Not Available 09/12/2024 11:55:05 12/21/19 24 12/21/2023 CBC W Auto Diffe renti al panel - Blood neutrophils/ leukocytes in blood by automated count 51.5 % low: 47%hig h: 73% NEUTR OPHIL S 51.5 47.0 - 73.0 % 12/20 4:47 AM CDT [facility] Not Available Not Available 09/12/2024 11:55:05 12/21/19 24 12/21/2023 CBC W Auto Diffe renti al panel - Blood lymphocytes/ leukocytes in blood by automated count 36.9 % low: 18%hig h: 42% LYMPH OCYTE S 36.9 18.0 - 42.0 % 12/20 4:47 AM CDT [facility] Not Available Not Available 09/12/2024 11:55:05 12/21/19 24 12/21/2023 CBC W Auto Diffe renti al panel - Blood monocytes/le ukocytes in blood by automated count 7.2 % low: 4%high : 12% MONOC YTES 7.2 4.0 - 12.0 % 12/20 4:47 AM CDT [facility] Not Available Not Available 09/12/2024 11:55:05 12/21/19 24 12/21/2023 CBC W Auto Diffe renti al panel - Blood eosinophils/ leukocytes in blood by automated count 3.5 % low: 0%high : 5% EOSIN OPHIL S 3.5 0.0 - 5.0 % 12/20 4:47 AM CDT [facility] Not Available Not Available 09/12/2024 11:55:05 12/21/19 24 12/21/2023 CBC W Auto Diffe renti al panel - Blood basophils/le ukocytes in blood by automated count 0.9 % low: 0%high : 1% BASOP HILS 0.9 0.0 - 1.0 % 12/20 4:[address] Not Available Not Available 09/12/2024 11:55:05 12/21/19 24 12/21/2023 CBC W Auto Diffe renti al panel - Blood neutrophils [#/volume] in blood by automated count 2.38 text: 1.60 - 7.70 10(3)/ mcL ABSOL WILTON NEUTR OPHIL S 2.38 1.60 - 7.70 10(3) /mcL 12/20 4:47 AM [facility] Not Available Not Available 09/12/2024 11:55:05 12/21/19 24 12/21/2023 CBC W Auto Diffe renti al panel - Blood lymphocytes [#/volume] in blood by automated count 1.7 text: 1.30 - 3.20 10(3)/ mcL ABSOL WILTON LYMPH OCYTE S 1.70 1.30 - 3.20 10(3) /mcL 12/20 4:47 AM CDT [facility] R LAB Not Available Not Available 09/12/2024 11:55:05 12/21/19 24 12/21/2023 CBC W Auto Diffe renti al panel - Blood monocytes [#/volume] in blood by automated count 0.33 text: 0.20 - 1.00 10(3)/ mcL ABSOL WILTON MONOC YTES 0.33 0.20 - 1.00 10(3) /mcL 12/20 4:47 AM CD[facility] Not Available Not Available 09/12/2024 11:55:05 12/21/19 24 12/21/2023 CBC W Auto Diffe renti al panel - Blood eosinophils [#/volume] in blood by automated count 0.16 text: 0.00 - 0.40 10(3)/ mcL ABSOL WILTON EOSIN OPHIL 0.16 0.00 - 0.40 10(3) /mcL 12/20 4:47 AM CDT [facility] Not Available Not Available 09/12/2024 11:55:05 12/21/19 24 12/21/2023 CBC W Auto Diffe renti al panel - Blood basophils [#/volume] in blood by automated count 0.04 text: 0.00 - 0.10 10(3)/ mcL ABSOL WILTON BASOP HILS 0.04 0.00 - 0.10 10(3) /mcL 12/20 4:[address] [facility] Not Available Not Available 09/12/2024 11:55:05 12/21/1912/21/2023 CBC W Auto Diffe renti al panel - Blood nucleated erythrocytes /leukocytes [ratio] in blood 0 NRBC PER 100 WBC 0 12/20 4:47 AM CD[facility] Not Available Not Available 09/12/2024 11:55:05 12/21/19 24 12/21/2023 CBC W Auto Diffe renti al panel - Blood interpretati on and review of laboratory results Abnorm al Not Available Not Available 11:55:05 12/21/19 24 12/21/2023 Basic metab olic 1999 panel - Serum or Plasm a sodium [moles/volum e] in serum or plasma 143 mmol/ L low: 136mmo l/Lhig h: 145mmo l/L SODIU M 143 136 - 145 mmol/ L 12/20 5:07 AM CDT [facility] Not Available Not Available 09/12/2024 11:55:05 12/21/19 24 12/21/2023 Basic metab olic 1999 panel - Serum or Plasm a potassium [moles/volum e] in serum or plasma 3.5 mmol/ L low: 3.5mmo l/Lhig h: 5.1mmo l/L POTAS SIUM 3.5 3.5 - 5.1 mmol/ L 12/20 5:[address] [facility] Not Available Not Available 09/12/2024 11:55:05 12/21/19 24 12/21/2023 Basic metab olic 1999 panel - Serum or Plasm a chloride [moles/volum e] in serum or plasma 115 mmol/ L low: 98mmol /Lhigh : 107mmo l/L high CHLOR ALAINA 115 (H) 98 - 107 mmol/ L 12/20 5:[address] [facility] Not Available Not Available 09/12/2024 11:55:05 08/20/20 24 12/21/2023 Basic metab olic 1999 panel - Serum or Plasm a carbon dioxide, total [moles/volum e] in serum or plasma 22 mmol/ L low: 22mmol /Lhigh : 30mmol /L CO2, VENOU S 22 22 - 30 mmol/ L 12/20 5:07 AM CDT [facility] [employer] C[facility] R LAB Not Available Not Available 09/12/2024 11:55:05 12/21/19 24 12/21/2023 Basic metab olic 2000 panel - Serum or Plasm a anion gap in serum or plasma by calculation 9.5 mmol/ L high: 18mmol /L ANION GAP 9.5 <18.0 mmol/ L 12/20 5:[address] [facility] Not Available Not Available 09/12/2024 11:55:05 12/21/19 24 12/21/2023 Basic metab olic 2000 panel - Serum or Plasm a glucose [mass/volume ] in serum or plasma 81 mg/dL low: 70mg/d Lhigh: 99mg/d L GLUCO SE 81 70 - 99 mg/dL 12/20 5:07 AM CDT [facility] [employer] [facility] Not Available Not Available 09/12/2024 11:55:05 12/21/19 24 12/21/2023 Basic metab olic 2000 panel - Serum or Plasm a urea nitrogen [mass/volume ] in serum or plasma 10 mg/dL low: 10mg/d Lhigh: 20mg/d L BUN 10 10 - 20 mg/dL 12/20 5:[address] Not Available Not Available 09/12/2024 11:55:05 12/21/19 24 12/21/2023 Basic metab olic 2000 panel - Serum or Plasm a creatinine [mass/volume ] in serum or plasma 0.7 mg/dL low: 0.6mg/ dLhigh : 1mg/dL CREAT ININE , BLOOD 0.70 0.60 - 1.00 mg/dL 12/20 5:07 AM CDT [facility] [employer] R LAB Not Available Not Available 09/12/2024 11:55:05 12/21/19 24 12/21/2023 Basic metab olic 2000 panel - Serum or Plasm a urea nitrogen/cre atinine [mass ratio] in serum or plasma 14 text: 12 - 20 ratio BUN/C REATI NINE RATIO 14 12 - 20 ratio 12/20 5:07 AM CDT [facility] [employer] [facility] Not Available Not Available 09/12/2024 11:55:05 12/21/19 24 12/21/2023 Basic metab olic 2000 panel - Serum or Plasm a calcium [mass/volume ] in serum or plasma 8.2 mg/dL low: 8.7mg/ dLhigh : 10.5mg /dL low CALCI UM 8.2 (L) 8.7 - 10.5 mg/dL 12/20 5:07 AM CDT [facility] [employer] [facility] Not Available Not Available 09/12/2024 11:55:05 12/21/19 24 12/21/2023 Basic metab olic 2000 panel - Serum or Plasm a glomerular filtration rate [volume rate/area] in serum, plasma or blood by creatinine-b ased formula (MDRD)/1.73 sq M among non black population low: 60 GFR, ESTIM ATED >60 >=60 12/20 5:07 AM CDT [facility] [employer] [facility] Not Available Not Available 09/12/2024 11:55:05 12/21/19 24 12/21/2023 Basic metab olic 2000 panel - Serum or Plasm a glomerular filtration rate [volume rate/area] in serum, plasma or blood by creatinine-b ased formula (MDRD)/1.73 sq M among black population low: 60 GFR, EST. AFRIC AN >60 >=60 12/20 5:07 AM CDT [facility] [employer] [facility] LAB Not Available Not Available 09/12/2024 11:55:05 12/21/19 24 12/21/2023 Basic metab olic 2000 panel - Serum or Plasm a glomerular filtration rate [volume rate/area] in serum, plasma or blood by creatinine-b ased formula (MDRD)/1.73 sq M among non black population low: 60 GFR, EST. NONAF RICAN >60 >=60 12/20 5:[address] [facility] Not Available Not Available 09/12/2024 11:55:05 12/21/19 24 12/21/2023 Basic metab olic 2000 panel - Serum or Plasm a interpretati on and review of laboratory results Abnorm al Not Available Not Available 11:55:05 12/21/19 24 12/21/2023 Lipid 1996 panel - Serum or Plasm a cholesterol [mass/volume ] in serum or plasma 157 mg/dL high: 200mg/ dL ESTRADA STERO L 157 <200 mg/dL 12/20 5:[address] [facility] Not Available Not Available 09/12/2024 11:55:05 12/21/19 24 12/21/2023 Lipid 1996 panel - Serum or Plasm a triglyceride [mass/volume ] in serum or plasma 79 mg/dL high: 150mg/ dL TRIGL YCERI SCOTT 79 <150 mg/dL 12/20 5:07 AM CDT [facility] [employer] [facility] R LAB Not Available Not Available 09/12/2024 11:55:05 12/21/19 24 12/21/2023 Lipid 1996 panel - Serum or Plasm a cholesterol in HDL [mass/volume ] in serum or plasma 45 mg/dL low: 40mg/d L HDL ESTRADA STERO L 45 >40 mg/dL 12/20 5:07 AM CDT [facility] [employer] [facility] Not Available Not Available 09/12/2024 11:55:05 12/21/19 24 12/21/2023 Lipid 1996 panel - Serum or Plasm a cholesterol in LDL [mass/volume ] in serum or plasma 96 mg/dL high: 130mg/ dL LDL 96 <130 mg/dL 12/20 5:07 AM CDT [facility] [employer] [facility] Not Available Not Available 09/12/2024 11:55:05 12/21/19 24 12/21/2023 Lipid 1996 panel - Serum or Plasm a cholesterol in VLDL [mass/volume ] in serum or plasma 16 mg/dL low: 10mg/d Lhigh: 50mg/d L VLDL 16 10 - 50 mg/dL 12/20 5:07 AM CDT [facility] Not Available Not Available 09/12/2024 11:55:05 12/21/19 24 12/21/2023 Lipid 1996 panel - Serum or Plasm a cholesterol. total/choles terol in HDL [mass ratio] in serum or plasma 3.5 low: 0high: 4.4 CHOL/ HDL RATIO 3.5 0.0 - 4.4 12/20 5:07 AM CDT [facility] [employer] R LAB Not Available Not Available 09/12/2024 11:55:05 12/21/19 24 12/21/2023 Lipid 1996 panel - Serum or Plasm a cholesterol non HDL [mass/volume ] in serum or plasma 112 mg/dL high: 130mg/ dL NON-H DL ESTRADA STERO L 112 <130 mg/dL 12/20 5:07 AM CDT [facility] Not Available Not Available 09/12/2024 11:55:05 12/21/19 24 12/21/2023 Lipid 1996 panel - Serum or Plasm a interpretati on and review of laboratory results Normal Not Available Not Available 08/31 11:55:05 07/05/19 25 07/05/2024 TSH+F REE T4 TSH 1.220 uIU/m L 0.450- 4.500 Not Available [facility] ([facility]) [address] [place], [address], 07/05/2024 04:13:21 07/05/1907/05/2024 TSH+F REE T4 T4,free(dire ct) 1.05 NG/dL 0.82-1 .77 Not Available [facility] ([facility]) [address] [place], [address], 07/05/2024 04:13:21 07/05/19 25 07/05/2024 LIPID PANEL cholesterol, total 198 mg/dL 100-19 9 Not Available [facility] ([facility]) [address] [place], [address], 07/05/2024 04:13:23 07/05/19 25 07/05/2024 LIPID PANEL triglyceride s 88 mg/dL 0-149 Not Available [facility] ([facility]) [address] [place], [address], 07/05/2024 04:13:23 07/05/19 25 07/05/2024 LIPID PANEL HDL cholesterol 63 mg/dL >39 Not Available [facility] ([facility]) [address] [place], [address], 07/05/2024 04:13:23 07/05/19 25 07/05/2024 LIPID PANEL VLDL cholesterol fernando 16 mg/dL 5-40 Not Available [facility] ([facility]) [address] [place], [address], 07/05/2024 04:13:23 07/05/19 25 07/05/2024 LIPID PANEL LDL chol calc ([facility]) 119 mg/dL 0-99 above high normal Not Available [facility] ([facility]) [address] [place], [address], 07/05/2024 04:13:23 07/05/19 25 07/05/2024 COMP. METAB OLIC PANEL (14) glucose 90 mg/dL 70-99 Not Available [facility] ([facility]) [address] [place], [address], 07/05/2024 04:13:24 07/05/19 25 07/05/2024 COMP. METAB OLIC PANEL (14) BUN 16 mg/dL 8-27 Not Available [facility] ([facility]) [address] [place], [address], 07/05/2024 04:13:24 07/05/19 25 07/05/2024 COMP. METAB OLIC PANEL (14) creatinine 0.89 mg/dL 0.57-1 .00 Not Available [facility] ([facility]) [address] [facility], [place], [address], 07/05/2024 04:13:24 07/05/19 25 07/05/2024 COMP. METAB OLIC PANEL (14) eGFR 71 mL/mi n/1.7 3 >59 Not Available [facility] ([facility]) [address] [facility], [place], [address], 07/05/2024 04:13:24 07/05/19 25 07/05/2024 COMP. METAB OLIC PANEL (14) BUN/creatini ne ratio 18 12-28 Not Available [facility] ([facility]) [address] [facility], [place], [address], 07/05/2024 04:13:24 07/05/19 25 07/05/2024 COMP. METAB OLIC PANEL (14) sodium 143 mmol/ L 134-14 4 Not Available [facility] ([facility]) [address] [place], [address], 07/05/2024 04:13:24 07/05/19 25 07/05/2024 COMP. METAB OLIC PANEL (14) potassium 3.3 mmol/ L 3.5-5. 2 below low normal Not Available [facility] ([facility]) [address] [place], [address], 07/05/2024 04:13:24 07/05/19 25 07/05/2024 COMP. METAB OLIC PANEL (14) chloride 106 mmol/ L 96-106 Not Available [facility] ([facility]) [address] [place], [address], 07/05/2024 04:13:24 07/05/19 25 07/05/2024 COMP. METAB OLIC PANEL (14) carbon dioxide, total 23 mmol/ L 20-29 Not Available [facility] ([facility]) [address] [facility], [place], [address], 07/05/2024 04:13:24 07/05/19 25 07/05/2024 COMP. METAB OLIC PANEL (14) calcium 9.2 mg/dL 8.7-10 .3 Not Available [facility] ([facility]) [address] [facility], [place], [address], 07/05/2024 04:13:24 07/05/19 25 07/05/2024 COMP. METAB OLIC PANEL (14) protein, total 6.5 g/dL 6.0-8. 5 Not Available [facility] ([facility]) [address] [facility], [place], [address], 07/05/2024 04:13:24 07/05/19 25 07/05/2024 COMP. METAB OLIC PANEL (14) albumin 4.2 g/dL 3.9-4. 9 Not Available [facility] ([facility]) [address] [facility] [place], [address], 07/05/2024 04:13:24 07/05/19 25 07/05/2024 COMP. METAB OLIC PANEL (14) globulin, total 2.3 g/dL 1.5-4. 5 Not Available [facility] ([facility]) [address] [facility] [place], [address], 07/05/2024 04:13:24 07/05/19 25 07/05/2024 COMP. METAB OLIC PANEL (14) bilirubin, total <0.2 mg/dL 0.0-1. 2 Not Available [facility] ([facility]) [address] [facility] [place], [address], 07/05/2024 04:13:24 07/05/19 25 07/05/2024 COMP. METAB OLIC PANEL (14) alkaline phosphatase 76 IU/L 44-121 Not Available [facility] ([facility]) [address] [facility], [place], [address], 07/05/2024 04:13:24 07/05/19 25 07/05/2024 COMP. METAB OLIC PANEL (14) AST (SGOT) 22 IU/L 0-40 Not Available [facility] ([facility]) [address] [facility], [place], [address], 07/05/2024 04:13:24 07/05/19 25 07/05/2024 COMP. METAB OLIC PANEL (14) ALT (SGPT) 18 IU/L 0-32 Not Available [facility] ([facility]) [address] [facility], [place], [address], 07/05/2024 04:13:24 07/05/19 25 07/04/2024 HEMOG LOBIN A1C hemoglobin A1C 5.3 % 4.8-5. 6 Predi abete s: 5.7 - 6.4 Diabe robert: >6.4 Glyce agustín contr ol for adult s with diabe robert: <7.0 Not Available [facility] ([facility]) [address] [place], [address], 07/05/2024 04:13:25 07/05/19 25 07/04/2024 CBC WITH DIFFE RENTI AL/PL ATELE T WBC 4.5 x10e3 /uL 3.4-10 .8 Not Available [facility] ([facility]) [address] [place], [address], 07/05/2024 04:13:26 07/05/19 25 07/04/2024 CBC WITH DIFFE RENTI AL/PL ATELE T RBC 4.61 x10e6 /uL 3.77-5 .28 Not Available [facility] ([facility]) [address] [facility], [place], [address], 07/05/2024 04:13:26 07/05/19 25 07/04/2024 CBC WITH DIFFE RENTI AL/PL ATELE T hemoglobin 13.0 g/dL 11.1-1 5.9 Not Available [facility] ([facility]) [address] [place], [address], 07/05/2024 04:13:26 07/05/19 25 07/04/2024 CBC WITH DIFFE RENTI AL/PL ATELE T hematocrit 39.8 % 34.0-4 6.6 Not Available [facility] ([facility]) [address] [facility], [place], [address], 07/05/2024 04:13:26 07/05/19 25 07/04/2024 CBC WITH DIFFE RENTI AL/PL ATELE T MCV 86 fL 79-97 Not Available [facility] ([facility]) [address] [facility], [place], [address], 07/05/2024 04:13:26 07/05/19 25 07/04/2024 CBC WITH DIFFE RENTI AL/PL ATELE T MCH 28.2 pg 26.6-3 3.0 Not Available [facility] ([facility]) [address] [place], [address], 07/05/2024 04:13:26 07/05/19 25 07/04/2024 CBC WITH DIFFE RENTI AL/PL ATELE T MCHC 32.7 g/dL 31.5-3 5.7 Not Available [facility] ([facility]) [address] [place], [address], 07/05/2024 04:13:26 07/05/19 25 07/04/2024 CBC WITH DIFFE RENTI AL/PL ATELE T RDW 14.2 % 11.7-1 5.4 Not Available [facility] ([facility]) [address] [place], [address], 07/05/2024 04:13:26 07/05/19 25 07/04/2024 CBC WITH DIFFE RENTI AL/PL ATELE T platelets 234 x10e3 /uL 150-45 0 Not Available [facility] ([facility]) [address] [facility], [place], [address], 07/05/2024 04:13:26 07/05/19 25 07/04/2024 CBC WITH DIFFE RENTI AL/PL ATELE T neutrophils 52 % notest ab. Not Available [facility] ([facility]) [address] [facility], [place], [address], 07/05/2024 04:13:26 07/05/19 25 07/04/2024 CBC WITH DIFFE RENTI AL/PL ATELE T lymphs 37 % notest ab. Not Available [facility] ([facility]) [address] [facility], [place], [address], 07/05/2024 04:13:26 07/05/19 25 07/04/2024 CBC WITH DIFFE RENTI AL/PL ATELE T monocytes 7 % notest ab. Not Available [facility] ([facility]) [address] [facility], [place], [address], 07/05/2024 04:13:26 07/05/19 25 07/04/2024 CBC WITH DIFFE RENTI AL/PL ATELE T eos 3 % notest ab. Not Available [facility] ([facility]) [address] [facility], [place], [address], 07/05/2024 04:13:26 07/05/19 25 07/04/2024 CBC WITH DIFFE RENTI AL/PL ATELE T basos 1 % notest ab. Not Available [facility] ([facility]) [address] [facility], [place], [address], 07/05/2024 04:13:26 07/05/19 25 07/04/2024 CBC WITH DIFFE RENTI AL/PL ATELE T neutrophils (absolute) 2.3 x10e3 /uL 1.4-7. 0 Not Available [facility] ([facility]) [address] [facility], [place], [address], 07/05/2024 04:13:26 07/05/19 25 07/04/2024 CBC WITH DIFFE RENTI AL/PL ATELE T lymphs (absolute) 1.7 x10e3 /uL 0.7-3. 1 Not Available [facility] ([facility]) [address] [facility], [place], [address], 07/05/2024 04:13:26 07/05/19 25 07/04/2024 CBC WITH DIFFE RENTI AL/PL ATELE T monocytes(ab solute) 0.3 x10e3 /uL 0.1-0. 9 Not Available [facility] ([facility]) [address] [facility], [place], [address], 07/05/2024 04:13:26 07/05/19 25 07/04/2024 CBC WITH DIFFE RENTI AL/PL ATELE T eos (absolute) 0.2 x10e3 /uL 0.0-0. 4 Not Available [facility] ([facility]) [address] [facility], [place], [address], 07/05/2024 04:13:26 07/05/19 25 07/04/2024 CBC WITH DIFFE RENTI AL/PL ATELE T baso (absolute) 0.0 x10e3 /uL 0.0-0. 2 Not Available [facility] ([facility]) [address] [place], [address], 07/05/2024 04:13:26 07/05/19 25 07/04/2024 CBC WITH DIFFE RENTI AL/PL ATELE T immature granulocytes 0 % notest ab. Not Available [facility] ([facility]) [address] [facility], [place], [address], 07/05/2024 04:13:26 07/05/19 25 07/04/2024 CBC WITH DIFFE RENTI AL/PL ATELE T immature grans (abs) 0.0 x10e3 /uL 0.0-0. 1 Not Available [facility] ([facility]) [address], [place], [address], 07/05/2024 04:13:26 04/22/20 23 04/22/2023 MAMMO , scree vonda, digit al, bilat eral No observ ation record ed. nsuthan [address] [place], [address], 04/22/2023 14:19:56 08/31/19 25 08/29/2024 MAMMO , scree vonda, bilat eral No observ ation record ed. KIM [address] [place], [address], 09/04/2024 15:35:47 09/13/19 25 08/29/2024 DEXA No observ ation record ed. [address] [place], [address], 09/12/2024 17:26:51 Result Notes None recorded. Problems Name Problem SNOMED Code Status Onset Date Resolution Date Notes Provider Name and Address Organization Details Recorded Time Headache 61310760 Active 2017 sees neuro Kaylan Gray MD Attn: Zak dalal,[address] [facility], [place], [address], [facility] 2 11:01:20 Osteopen ia 945501096 Active 2024 BRUNO CHRISTOPHER-MONIQUE Attn: Zak g,[address] [facility], [place], [address], [facility] - [facility] 5 17:04:36 [facility] hyperten omaira 67774794 Active Kaylan Gray MD Attn: Zak g,[address] [facility], [place], [address], [facility] - [facility] 2 10:58:27 Hyperlip idemia 33522449 Active Kaylan Gray MD Attn: Zak dalal,[address] [facility], [place], [address], [place] - [facility] 2 10:58:27 Thigh pain 77718311 Completed 05/21/2016 Kaylan Gray MD Attn: Zak dalal,[address] [facility], [place], [address], [place] [facility] 7 09:42:58 Multiple skin tags 648031104 Completed 05/21/2016 Kaylan Gray MD Attn: Zak dalal,[address] [facility], [place], [address], [place] [facility] 7 09:42:46 Chronic back pain 088797534 Active Kaylan Gray MD Attn: Zak dalal,[address] [facility], [place], [address], [facility] - [facility] 2 10:58:27 Anxiety 62922176 Active Kaylan Gray MD Attn: Zak dalal,[address] [facility], [place], [address], [facility] - [facility] 2 10:58:27 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 Procedures Surgical History Date Name Laterality Status Provider Name and Address Organization Details Recorded Time 08/10/19 19 colonoscopy completed Jennifer Blake [place] - [facility] 03/04/2020 12:09:52 11/19/19 18 Most Recent Mammogram completed Kaylan Gray MD Attn: Accounting,[address] [facility], [place], [address], [facility] - [facility] 11/18/2017 10:29:56 03/22/20 17 Other completed Tawnya Benavides [place] - [facility] 06/28/2017 10:35:08 04/16/20 15 Skin Tag Removal completed Kaylan Gray MD Attn: Accounting,[address], [place], [address], [facility] 04/16/2015 14:51:31 05/03/19 02 Total hysterectomy completed Tawnya Benavides [facility] 09/16/2016 12:06:08 procedure on urinary bladder completed Tawnya Benavides MA [facility] 10/28/2020 08:37:17 Other completed Tawnya Benavides MA [facility] 09/25/2021 11:09:20 right cataract extraction completed Tawnya Benavides MA [facility] 12/31/2022 10:17:06 left cataract extraction completed Tawnya Benavides MA [facility] 12/31/2022 10:17:28 Dilation and Curettage completed Ellyn Goodrich MA [facility] 09/18/2014 10:13:01 Imaging Results None recorded. Procedure Notes None recorded. Medical Equipment None Reported. Allergies Allergen ID Allergen Name Allergen Category Reaction Reaction Severity Criticality Documentation Date Start Date Code Code System Note Provider Name and Address Organization Details Recorded Time 72518 codeine medicatio n other severe Not available 09/18/2014 2670 RxNorm breat chelsea issue s Ellyn Goodrich MA null, [place] - [facility] 5 10:13:01 Medications Name Sig Start Date Stop Date Status Note LastModified by Organization Details LastModified Time losartan 50 mg tablet TAKE 1 TABLET BY MOUTH ONCE DAILY 03/16 completed Not Available Not Available Not Available hydrocort isone 5 mg tablet endo 06/28 completed not taking Not Available Not Available Not Available carvedilo l 25 mg tablet TAKE 1 2 (ONE HALF) TABLET BY MOUTH TWICE DAILY 06/18 completed Not Available Not Available Not Available clonidine HCl 0.1 mg tablet TAKE 1 TABLET BY MOUTH THREE TIMES DAILY 03/16 completed not taking Not Available Not Available Not Available venlafaxi ne ER 75 mg capsule,e xtended release 24 hr TAKE 1 CAPSULE BY MOUTH ONCE DAILY 03/16 completed not taking Not Available Not Available Not Available carvedilo l 12.5 mg tablet TAKE 1 TABLET BY MOUTH TWICE DAILY active Not Available Not Available No t Available trazodone 50 mg tablet TAKE 1 TABLET BY MOUTH ONCE DAILY AT BEDTIME FOR 90 DAYS active Not Available Not Available No t Available cetirizin e 10 mg tablet TAKE 1 TABLET BY MOUTH ONCE DAILY FOR 30 DAYS 03/16 completed not taking Not Available Not Available Not Available azithromy jeosph 250 mg tablet TAKE 2 TABLETS BY MOUTH ON DAY 1, AND THEN TAKE 1 TABLET BY MOUTH ONCE A DAY ON DAY 2 THROUGH DAY 5 UNTIL FINISHED 09/25 completed Not Available Not Available Not Available hydrocodo ne 5 mg-acetam inophen 325 mg tablet TAKE 1-2 TABS BY MOUTH EVERY 4 HOURS NEEDED FOR PAIN. MAX OF 8 TABS PER DAY 09/25 completed Not Available Not Available Not Available meloxicam 15 mg tablet TAKE ONE TABLET BY MOUTH ONCE DAILY NEEDED FOR PAIN TAKE WITH A MEAL 06/28 completed not taking Not Available Not Available Not Available venlafaxi ne 25 mg tablet TAKE 1 TABLET BY MOUTH THREE TIMES DAILY 03/04 completed neuro, not taking Not Available Not Available Not Available ondansetr on HCl 4 mg tablet TAKE 1 TABLET BY MOUTH EVERY 6 HOURS 09/25 completed PRN Not Available Not Available Not Available clonazepa m 0.5 mg tablet TAKE ONE TABLET BY MOUTH once DAILY NEEDED active Not Available Not Available No t Available sumatript an 50 mg tablet 06/28 completed not taking Not Available Not Available Not Available topiramat e 25 mg tablet Take 1 tablet twice a day by oral route. 02/14 completed Not Available Not Available Not Available nizatidin e 150 mg capsule TAKE 1 CAPSULE BY MOUTH TWICE DAILY 06/18 completed Not Available Not Available Not Available sulfameth oxazole 800 mg-trimet hoprim 160 mg tablet TAKE 1 TABLET BY MOUTH TWICE DAILY FOR 7 DAYS 09/25 completed Not Available Not Available Not Available triamcino lone acetonide 0.1 % topical cream APPLY A THIN LAYER OF CREAM EXTERNAL LY TWICE DAILY 12/31 completed prn Not Available Not Available Not Available butalbita l-acetami nophen-ca ffeine 50 mg-325 mg-40 mg tablet TAKE 1 TABLET BY MOUTH EVERY 6 HOURS NEEDED FOR HEADACHE OR MIGRAINE 02/03 completed PRN Not Available Not Available Not Available simvastat in 40 mg tablet TAKE 1 TABLET BY MOUTH ONCE DAILY AT BEDTIME active Not Available Not Available No t Available ketorolac 0.5 % eye drops INSTILL 1 DROP INTO OPERATIV E EYE 4 TIMES DAILY FOR 14 DAYS THEN USE 1 DROP TWICE DAILY FOR 14 DAYS THEN STOP 09/24 completed Not Available Not Available Not Available clonidine HCl 0.2 mg tablet TAKE 1 TABLET BY MOUTH THREE TIMES DAILY 03/04 completed Not Available Not Available Not Available famotidin e 20 mg tablet Take 1 tablet twice a day by oral route. 06/18 completed Not Available Not Available Not Available prednisol one acetate 1 % eye drops,petar pension INSTILL 1 DROP INTO OPERATIV E EYE 4 TIMES DAILY FOR 14 DAYS THEN INSTILL 1 DROP TWICE DAILY FOR 14 DAYS THEN STOP 09/24 completed Not Available Not Available Not Available lorazepam 0.5 mg tablet po 1 tab prior to imaging 09/24 completed Not Available Not Available Not Available ranitidin e 150 mg tablet TAKE 1 TABLET BY MOUTH TWICE DAILY 02/06 completed replaced with [facility] Not Available Not Available Not Available mupirocin 2 % topical ointment 08/13 completed Not Available Not Available Not Available methylpre dnisolone 4 mg tablets in a dose pack TAKE BY MOUTH DIRECTED ON INSIDE OF PACKAGE 02/25 completed Not Available Not Available Not Available losartan 50 mg-hydroc hlorothia zide 12.5 mg tablet TAKE 1 TABLET BY MOUTH ONCE DAILY active Not Available Not Available No t Available rizatript an 5 mg disintegr ating tablet DISSOLVE 1 TABLET IN MOUTH NEEDED FOR MIGRAINE HEADACHE 03/04 completed neuro, not taking Not Available Not Available Not Available ondansetr on 4 mg disintegr ating tablet DISSOLVE 1 TABLET IN MOUTH EVERY 8 HOURS NEEDED FOR NAUSEA OR VOMITING 09/25 completed PRN Not Available Not Available Not Available topiramat e 100 mg tablet TAKE 1 TABLET BY MOUTH TWICE DAILY active Not Available Not Available No t Available sertralin e 50 mg tablet TAKE 1 TABLET BY MOUTH ONCE DAILY 09/25 completed Not Available Not Available Not Available amoxicill in 875 mg-potass ium clavulana te 125 mg tablet 04/20 completed Not Available Not Available Not Available cyclobenz aprine 5 mg tablet TAKE 1 TABLET BY MOUTH THREE TIMES DAILY NEEDED FOR MUSCLE SPASM 12/31 completed Not Available Not Available Not Available moxifloxa joesph 0.5 % eye drops INSTILL 1 DROP INTO OPERATIV E EYE 4 TIMES DAILY FOR 14 DAYS THEN STOP 09/24 completed Not Available Not Available Not Available topiramat e 50 mg tablet TAKE 1 TABLET BY MOUTH THREE TIMES DAILY 04/02 completed Not Available Not Available Not Available Afluria (PF) 45 mcg (15 mcg x 3)/0.5 mL IM syringe 03/16 completed Not Available Not Available Not Available Afluria (PF) 45 mcg(15 mcg x 3)/0.5 mL intramusc ular syringe 05/21 completed Not Available Not Available Not Available Fluarix Quad (PF) 60 mcg (15 mcg x 4)/0.5 mL IM syringe 03/18 completed Not Available Not Available Not Available Afluria Qd (36 mos up)(PF)60 mcg (15 mcg x4)/0.5 mL IM syringe ADM 0.5ML IM UTD 10/28 completed Not Available Not Available Not Available BinaxNOW COVID-19 Ag Self Test kit Use as Directed on the Package 02/03 completed Not Available Not Available Not Available Vitals Date Recorded Body height Body weight Body mass index (BMI) Heart rate Respiratory rate Body temperature Oxygen saturation Oxygen saturation in Arterial blood by Pulse oximetry Systolic blood pressure Diastolic blood pressure Provider Name and Address Organization Details Last Updated DateTime 4 144.78 cm 33276.9 6 g 26.1 kg/m2 72 /min 16 /min 97.7 [degF] 97 % 97 % 118 mm[Hg] 82 mm[Hg] Anna Collins MA [place] - [facility] 4 12:13:21 Date Recorded Body height Body mass index (BMI) Body weight Oxygen saturation Oxygen saturation in Arterial blood by Pulse oximetry Heart rate Respiratory rate Body temperature Systolic blood pressure Diastolic blood pressure Provider Name and Address Organization Details Last Updated DateTime 5 144.78 cm 27 kg/m2 73797.3 3 g 97 % 97 % 56 /min 14 /min 97.2 [degF] 115 mm[Hg] 76 mm[Hg] Tawnya Benavides MA [facility] 5 09:20:55 Date Recorded Body height Body mass index (BMI) Body weight Heart rate Respiratory rate Body temperature Oxygen saturation Oxygen saturation in Arterial blood by Pulse oximetry Systolic blood pressure Diastolic blood pressure Provider Name and Address Organization Details Last Updated DateTime 4 144.78 cm 26.7 kg/m2 08428.9 4 g 62 /min 16 /min 97.5 [degF] 97 % 97 % 145 mm[Hg] 90 mm[Hg] Anna Collins MA [facility] 4 08:54:36 Date Recorded Body height Body mass index (BMI) Body weight Heart rate Respiratory rate Body temperature Oxygen saturation Oxygen saturation in Arterial blood by Pulse oximetry Systolic blood pressure Diastolic blood pressure Provider Name and Address Organization Details Last Updated DateTime 3 144.78 cm 25.9 kg/m2 27175.2 9 g 56 /min 12 /min 97.2 [degF] 98 % 98 % 110 mm[Hg] 76 mm[Hg] Tawnya Benavides MA [facility] 3 09:12:53 Date Recorded Body height Body mass index (BMI) Body weight Heart rate Respiratory rate Body temperature Oxygen saturation Oxygen saturation in Arterial blood by Pulse oximetry Systolic blood pressure Diastolic blood pressure Provider Name and Address Organization Details Last Updated DateTime 4 144.78 cm 27.3 kg/m2 50032.6 4 g 56 /min 12 /min 97.2 [degF] 97 % 97 % 158 mm[Hg] 95 mm[Hg] Tawnya Benavides MA [facility] 4 09:14:18 Social History Question Answer Notes LastModified by Organizat ion Details LastModified Time Tobacco Smoking Status Former Smoker Quit - 08/10/2006 Tawnya Benavides MA [facility] 02/25/2021 14:34:59 Do You Have An Advance Directive? No Information not available 10/28/2020 Are You Blind Or Do You Have Difficulty Seeing? No Information not available 09/24/2022 Is Blood Transfusion Acceptable In An Emergency? Yes Information not available 03/04/2020 What Is Your Level Of Caffeine Consumption? Moderate Coffee Information not available 03/13/2020 How Much Tobacco Do You Chew? None Information not available 09/16/2016 In The 14 Days Before Symptom Onset, Have You Had Close Contact With A Laboratory-confir med COVID-19 While That Case Was Ill? No Information not available 08/14/2019 In The 14 Days Before Symptom Onset, Have You Had Close Contact With A Person Who Is Under Investigation For COVID-19 While That Person Was Ill? No Information not available 08/14/2019 Have You Been To An Area Known To Be High Risk For COVID-19? No Information not available 08/14/2019 Are You Deaf Or Do You Have Serious Difficulty Hearing? No Information not available 10/28/2020 What Type Of Diet Are You Following? REGULAR [email or web address] Information not available 05/21/2016 Which Illicit Or Recreational Drugs Have You Used? Denies Information not available 09/16/2016 Education 11 GED Information no t available 02/02/2019 What Is The Highest Grade Or Level Of School You Have Completed Or The Highest Degree You Have Received? [id number] Information not available 10/28/2020 Are There Any Guns Present In Your Home? Yes Information not available 02/02/2019 Live Alone Or With Others? With Others Information not available 03/04/2020 Marital Status Informatio n not available 09/16/2016 What Was The Date Of Your Most Recent Tobacco Screening? 07/04/2024 Information not available 07/04/2024 How Many Children Do You Have? 3 Information not available 03/04/2020 Performs Monthly Self-breast Exam? No Information no t available 03/04/2020 What Is Your Relationship Status? Information not available 03/04/2020 Do You Use Your Seat Belt Or Car Seat Routinely? Yes Information not available 10/28/2020 Seat Belts Used Routinely Yes Information not available 03/04/2020 Are You Sexually Active? Yes Information not available 03/04/2020 Smoke Alarm In Home Yes Information not available 02/02/2019 Do You Have Smoke And Carbon Monoxide Detectors In Your Home? Yes Information not available 10/28/2020 At What Age Did You Start Smoking Tobacco? 15 Information not available 09/16/2016 How Much Tobacco Do You Smoke? No [email or web address] Information not available 01/12/2020 General Stress Level High Information not available 03/13/2020 Do You Use Sunscreen Routinely? No Information not available 02/02/2019 Has Tobacco Cessation Counseling Been Provided? No Information not available 02/02/2022 Sex: Female Functional Status Question Answer Note LastModified by Organizat ion Details LastModified Time Do you use any illicit or recreational drugs? No Information not available 10/28/2020 Do you or have you ever used any other forms of tobacco or nicotine? No Information not available 10/28/2020 What is your level of alcohol consumption? Occasional Information not available 03/04/2020 Do you or have you ever used smokeless tobacco? Never used smokeless tobacco Information not available 02/02/2019 Are you currently employed? No Information not available 03/04/2020 Are you able to care for yourself? Yes Information not available 10/28/2020 What is your occupation? Retired Information not available 09/16/2016 Do you or have you ever used e-cigarettes or vape? Never used electronic cigarettes Information not available 02/02/2019 What is your exercise level? None Walking Information not available 03/16/2024 Mental Status Question Answer Note LastModified by Organization D etails LastModified Time Do you feel stressed (tense, restless, nervous, or anxious, or unable to sleep at night)? [id number] Information not available 04/02/2021 Family History Relationship Description Onset Age of this Age Resolved Age Notes LastModified by Organization Details LastModified Time Mother Essential hypertension [email or web address] Not available 12/2015 11:45:49 Mother Heart disease [email or web address] Not available 03/04 12:07:46 Father Essential hypertension [email or web address] Not available 12/2015 11:45:49 Father Heart disease [email or web address] Not available 03/04 12:07:46 Medical History Condition Response Coronary Artery Disease N Other N High Blood Pressure Y Atrial Fibrillation N Breast Cancer N Lung Disease N Depression N COPD N Blood Clots N Breast Problem N Anesthesia Complications N Headaches/Migraines Y Anxiety Disorder N Muscle, Joint, or Bone Problems N Infertility N Polyps N Acid Reflux (GERD) N Cancer N Stroke N Endometriosis N High Cholesterol Y Liver Disease N Headaches Y Thyroid Problems N Kidney or Bladder Problems N GI Problems N Acne N Eating Disorder N Skin Problems N Anemia N Heart Attack (MS) N Diabetes N Ovarian Cancer N Blood Transfusions N Seizures/Epilepsy N Abuse/Domestic Violence N Asthma N Allergies N Hepatitis N Heart Disease N Pre-Eclampsia N Heart Failure N Osteoporosis N Gynecological History Statement/Question Response On BCP's at Conception? N STIs/STDs N HPV Vaccine N Most Recent Mammogram 11/18/2017 Age at Menarche 12 Current Control Method Hysterectom y Age at First Child 20 Sexually Active? Y Menses Monthly N Date of Last Pap Smear Sexual Problems? N LMP Approximate Obstetrics History GPAL:G 5 P 3 0 2 3 Type Value Multiple Births 0 Full Term 3 Induced 0 Spontaneous 2 Premature 0 Living 3 Ectopics 0 Total 5 Immunizations Vaccine Type Date Status Note Provider Nam e and Address Organization Details Recorded Time Influenza, split virus, quadrivalent, preservative 0 completed Not Available [facility] 04/26/2022 19:07:52 Influenza, high-dose, quadrivalent, PF 1 completed Not Available [facility] 04/26/2022 19:07:52 COVID-19, mRNA, LNP-S, PF, 100 mcg/0.5mL dose or 50 mcg/0.25mL dose 1 completed Not Available [facility] 04/26/2022 19:07:52 COVID-19, mRNA, LNP-S, bivalent, PF, 50 mcg/0.5 mL or 25mcg/0.25 mL dose 2 completed Not Available [facility] 04/26/2022 19:07:52 RSV, recombinant, protein subunit RSVpreF, adjuvant reconstituted, 0.5 mL, PF 3 completed Negin decker, [place] - [facility] 02/26/2023 08:23:55 influenza, unspecified formulation 3 completed Negin [place], [place] [facility] 02/26/2023 08:24:29 Influenza, high-dose, trivalent, PF 4 completed Tawnya Benavides [place], [place] [facility] 01/19/2024 14:06:57 Influenza, split virus, quadrivalent, preservative 7 completed Not Available [facility] 05/20/2019 02:33:59 Influenza, split virus, trivalent, preservative 5 completed Not Available [facility] 04/26/2022 19:07:52 Tdap 9 completed Not Available [facility] 05/20/2019 02:37:31 Influenza, split virus, quadrivalent, preservative 9 completed Not Available [facility] 05/20/2019 02:38:11 COVID-19, mRNA, LNP-S, PF, 100 mcg/0.5mL dose or 50 mcg/0.25mL dose 1 completed Faina Wheat[place] null, [place] [facility] 06/07/2020 14:13:36 COVID-19, mRNA, LNP-S, PF, 100 mcg/0.5mL dose or 50 mcg/0.25mL dose 1 completed Erasmo Gutierrez [place], [place] [facility] 07/08/2020 14:49:48 Pneumococcal conjugate PCV 13 1 completed Tawnya [place]av[place] [facility] 10/28/2020 09:39:29 Influenza, split virus, quadrivalent, preservative 6 completed Not Available [facility] 04/26/2022 19:07:52 Influenza, high-dose, quadrivalent, PF 2 completed Tawnya [place]av[place] [facility] 02/03/2022 16:58:41 Influenza, split virus, quadrivalent, preservative 8 completed Not Available [facility] 04/26/2022 19:07:52 Past Encounters Encounter ID Performer Location Encounter Start Date Encounter Closed Date Diagnosis/Indication Diagnosis SNOMED-CT Code Diagnosis ICD10 Code Diagnosis Note [id number] [facility] [address] [place] [address] 09/18/2014 09:55:26 09/18/2014 11:01:41 Essential hypertension 54800479 Continue Coreg Add Clonidine bid which may help with hotflashes Hyperlipidemia 97418270 not on meds Thigh pain 72134131 with swelling on lateral thigh/R following injury 1 year ago Obesity 921760435 [id number] MD [facility] (Adult [facility]) [address] [place] [address] 10/08/2014 11:38:24 10/08/2014 12:45:36 Essential hypertension 67998439 Reduce Coreg 12.5mg bid Increase Clonidine bid which may help with hotflashes Hyperlipidemia 04162971 Start pt on Simvastati n labs prior to visit [id number] [facility] [address] [place] [address] 12/14/2014 11:35:31 12/14/2014 14:10:53 Essential hypertension 39264538 Reduce Coreg 12.5mg bid Increase Clonidine bid which may help with hotflashes Hyperlipidemia 29430243 Start pt on Simvastati n labs prior to visit Screening mammography 63356673 [id number] [facility] [address] [place] [address] 04/15/2015 09:54:15 04/16/2015 11:03:40 Essential hypertension 61928046 I10 continue Coreg 12.5mg bid Increased Clonidine bid which may help with hotflashes Hyperlipidemia 70553445 E78.4 continue Simvastati n labs prior to visit Obesity 936768520 E66.3 diet and exercise discussed with pt. [id number] MD Yolanda Barriga (Adult Med) [address] [place] [address] 04/16/2015 14:16:39 04/16/2015 15:58:57 Multiple skin tags 960693642 L91.8 [id number] MD Yolanda Barriga (Adult Med) [address] [place] [address] 08/09/2015 11:35:33 08/09/2015 15:04:02 Essential hypertension 37942400 I10 continue Coreg 12.5mg bid continue Clonidine bid which is helping with hotflashes Hyperlipidemia 63533820 E78.4 fair control- pt is noncomplia nt -pt is counselled continue Simvastati n Chronic back pain 915934 002 M54.5 mobic daily prn loose wt Anxiety 46555079 F41.1 situationa l anxiety declined shelter med will give Clonazepam bid prn for short term use [id number] [facility] [address] [place] [address] 11/21/2015 09:20:41 11/22/2015 11:19:49 Hyperlipidemia 14289719 E78.4 continue Simvastati n Essential hypertension 05427791 I10 continue Coreg 12.5mg bid continue Clonidine bid which is helping with hotflashes Anxiety 30131168 F41.1 situationa l anxiety-re solved Discontinu e Clonazepam [id number] MD [facility] [address] [place] [address] 05/21/2016 09:10:43 05/21/2016 10:07:44 Essential hypertension 45566533 I10 continue Coreg 12.5mg bid and Clonidine bid Hyperlipidemia 72121314 E78.4 continue Simvastati n Obesity 095218735 E66.3 diet and exercise discussed with pt. [id number] MD [facility] [address] [place] [address] 09/16/2016 11:39:35 09/16/2016 15:44:06 Essential hypertension 28079176 I10 continue Coreg 12.5mg bid Increase Clonidine tid Hyperlipidemia 45425929 E78.4 continue Simvastati n [id number] MD [facility] [address] [place] [address] 01/18/2017 11:46:57 01/22/2017 09:31:21 Administration of influenza vaccine 69367712 Z23 Essential hypertension 12147073 I10 continue Coreg 12.5mg bid continue Clonidine tid Hyperlipidemia 69881640 E78.4 continue Simvastati n Benign bear or of sella turcica 091569759 D16.4 pt is seeing endo [id number] MD [facility] [address] [place] [address] 04/20/2017 09:03:03 04/21/2017 12:02:57 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 s/p resection of pituitary tumor on 03/19pt to f/u with endo and ENT Essential hypertension 78134597 I10 fair control-pt did not take clonidine yet continue Coreg 12.5mg bid continue Clonidine tid [id number] MD Jessica Barrigahalto (Adult Med) [address] [place] [address] 06/28/2017 10:15:46 06/29/2017 16:12:59 Essential hypertension 24897613 I10 stable continue Coreg 12.5mg bid continue Clonidine tid Hyperlipidemia 39468672 E78.4 continue Simvastati n Anxiety 37975747 F41.1 situationa l anxiety -feeling anxious due to headache -declined med for anxiety Benign bear or of sella turcica 346023068 D16.4 s/p resection of pituitary tumor on 03/19pt to f/u with endo and ENT Headache 41444562 R51 start pt on Topamax [id number] MD [facility] [address] [place] [address] 09/13/2017 09:57:10 09/14/2017 08:06:04 Hyperlipidemia 85464034 E78.4 continue Simvastati n Essential hypertension 70076845 I10 stable continue Coreg 12.5mg bid continue Clonidine tid Headache 39169136 R51 ImprovingI ncrease Topamax 50 mg bid Obesity 736796179 E66.3 diet and exercise discussed with pt. Screening mammography 24 697029 Z12.31 Screening for malignant neoplasm of colon 998219777 Z12.11 pt had colonoscop y in the past -not sure about the datept is willing to do stool kit [id number] MD Yolanda Barriga (Adult Med) [address] [place] [address] 03/18/2018 08:24:16 03/21/2018 15:28:07 Essential hypertension 44659658 I10 stable continue Coreg 12.5mg bid continue Clonidine tid Hyperlipidemia 27457831 E78.2 Start pt on Simvastati n labs prior to visit Headache 91737405 R51 ImprovingI ncrease Topamax 50 mg bid Abdominal pain 55807023 R10.30 pt denied urinary symptoms or feverexam- benignpt to return to clinic or ER [facility] [id number] MD Yolanda Barriga (Adult Med) [address] [place] [address] 07/19/2018 10:01:27 07/20/2018 09:38:27 Headache 83246459 R51 stablecont inue Topamax 50 mg bid Hyperlipidemia 78932488 E78.2 continue Simvastati n Essential hypertension 92865331 I10 stable continue Coreg 12.5mg bid continue Clonidine tid Screening for malignant neoplasm of colon 472327683 Z12.11 pt had colonoscop y in the past -not sure about the date Gastroesop hageal reflux disease without esophagitis 292579472 K21.9 Administra tion of diphtheria, pertussis, and tetanus vaccine 704175844 Z23 [id number] MD [facility] [address] [place] [address] 02/02/2019 09:12:09 02/03/2019 10:01:58 Administration of influenza vaccine 14837480 Z23 Essential hypertension 15204347 I10 stable continue Coreg 12.5mg bid continue Clonidine tid Hyperlipidemia 53710905 E78.2 continue Simvastati n Headache 56348194 R51 fair controlpt to increase Topamax 50 mg tid [id number] MD [facility] [address] [place] [address] 08/14/2019 08:16:56 08/22/2019 12:05:09 Essential hypertension 55112313 I10 stable continue Coreg 12.5mg bid continue Clonidine tid Hyperlipidemia 82130359 E78.2 continue Simvastati n Headache 40952008 R51 stablept to continue Topamax 50 mg tid Renewal of prescription 566540863 Z76.0 [id number] MD [facility] [address] [place] [address] 10/23/2019 08:41:46 10/25/2019 12:08:11 Essential hypertension 42090713 I10 stable continue Coreg 12.5mg bid continue Clonidine tid Hyperlipidemia 78004177 E78.2 not well controlled due to noncomplia nt with med -discussed about risks of uncontroll ed cholestero l and counselled on compliance .continue Simvastati n as prescribed . Headache 44046943 R51 stablept to continue Topamax 50 mg tid [id number] MD [facility] [address] [place] [address] 01/12/2020 07:52:45 01/16/2020 12:59:35 Essential hypertension 90590504 I10 continue Coreg 12.5mg bid continue Clonidine tid Hyperlipidemia 79873910 E78.2 counselled on compliance .continue Simvastati n as prescribed . Anxiety 29165414 F41.1 situationa l anxiety -feeling anxious due to headache and some family issues -declined med for anxiety-di scussed about trazodone for sleep at night -pt agreed to try it Headache 73651299 R51 with h/o sx for benign tm of sella turcica.pt to continue Topamax 50 mg tid Renewal of prescription 899325293 Z76.0 [id number] MD Jessica Reichhalto (TRANSITION COACH) [address] [place] [address] 03/04/2020 11:36:13 03/05/2020 08:52:17 Gynecologic examination 85175029 Z01.419 Pt. had hysterecto my in 2001 for benign reasons. Therefore, no pap needed, dwp. Screening for malignant neoplasm of breast 506717918 Z12.39 Last 2017. Mammogram ordered. Screening for malignant neoplasm of colon 822563067 Z12.11 UTD Cystocele 858742092 N81. 10 Surgical and non-surgic al options discussed. ACOG handout given. Pt .to talk to . [id number] MD Jessica Barrig[facility] (Adult Med) [address] [place] [address] 03/13/2020 08:05:36 03/14/2020 13:52:24 Anxiety 20398809 F41.1 situationa l anxiety -feeling anxious due to headache and some family issues.pt is feeling better with trazodone -declined any other med for anxiety at this time. Essential hypertension 96022131 I10 continue Coreg 12.5mg bid continue Clonidine tid Hyperlipidemia 61132811 E78.2 counselled on compliance .continue Simvastati n as prescribed . Headache 00998061 R51.9 continue topamax Benign bear or of sella turcica 611328818 D16.4 s/p resection of pituitary tumor on 03/19pt to f/u with endo and ENT [id number] MD Silvina Adkins 14 IM [address] [facility] [place] [address] 06/07/2020 12:47:40 06/07/2020 18:40:14 Administration of SARS-CoV-2 antigen vaccine 876836156 Z23 [id number] MD Jessica Barrigahalto (Adult Med) [address] [facility] [place] [address] 06/18/2020 09:00:51 06/19/2020 07:46:03 Essential hypertension 13672690 I10 continue Coreg 12.5mg bid continue Clonidine tid Hyperlipidemia 22296458 E78.2 continue Simvastati n as prescribed . Anxiety 05190806 F41.1 situationa l anxiety -feeling anxious due to headache and some family issues.pt is feeling better with trazodone -declined any other med for anxiety at this time. Headache 78574633 R51.9 continue topamax [id number] MD Silvina Adkins 14 IM [address] [facility] [place] [address] 07/05/2020 12:30:09 07/08/2020 07:22:00 Administration of SARS-CoV-2 antigen vaccine 213160717 Z23 [id number] MD Jessica Barrig[facility]alto (Adult Med) [address] [facility] [place] [address] 10/28/2020 08:21:37 10/29/2020 09:01:51 Essential hypertension 52988186 I10 stable on coreg/clon idine Hyperlipidemia 22217930 E78.2 continue Simvastati n as prescribed . Anxiety 44869812 F41.1 situationa l anxiety -feeling anxious due to headache and some family issues.pt is feeling better with trazodone -declined any other med for anxiety at this time. Headache 17266081 R51.9 continue topamax Obesity 567538245 E66.3 diet and exercise discussed with pt. Immunization due 7887363 08 Z28.3 [id number] MD Yolanda Barriga (Adult Med) [address] [place] [address] 11/01/2020 14:04:11 11/05/2020 12:45:01 Allergic reaction 309727849 T78.40XA following prevnar shot-pt to return to clinic if problem persists or any discharge Otalgia of left ear 1089 872245 772915 H92.02 with some fluid - pt is on steroid pack and antihistam ine-reassu red [id number] MD Yolanda Barriga (Adult Med) [address] [place] [address] 02/25/2021 14:23:35 02/28/2021 09:46:23 Essential hypertension 46697577 I10 stable on coreg/clon idine Hyperlipidemia 28117734 E78.2 continue Simvastati n as prescribed . Anxiety 42529245 F41.1 -feeling anxious due to headache and some family issues.pt to start sertraline pt to continue trazodone Headache 84189727 R51.9 not well controlled due to anxiety and stress-con tinue topamax-pt started on sertraline for anxiety [id number] MD Yolanda Barriga (Adult Med) [address] [place] [address] 04/02/2021 11:42:17 04/03/2021 10:45:43 Anxiety 30239829 F41.1 -feeling anxious due to headache and some family issues-imp rovingpt to continue sertraline pt to continue trazodone Headache 02615308 R51.9 not well controlled due to anxiety and stress- pt to increase topamax 100mg bid-pt started on sertraline for anxiety [id number] MD Yolanda Barriga (Adult Med) [address] [place] [address] 06/18/2021 10:30:21 06/19/2021 07:29:07 Essential hypertension 73472984 I10 stable on coreg/clon idine Hyperlipidemia 73140316 E78.2 continue Simvastati n as prescribed . Anxiety 26129847 F41.1 -feeling anxious due to headache and some family issues-imp rovingpt to continue sertraline pt to continue trazodone Headache 03312783 R51.9 not well controlled due to anxiety and stress- pt is on topamax 100mg bid-pt started on sertraline for anxietypt to see neuro since her SILVA is getting worse Obesity 134244544 E66.9 diet and exercise discussed with pt. Infection of sebaceous cyst 085439777 L72.3 on abdomen - pt to see surgeon due to recurrent infection- warm compress /rx with antibiotic [id number] MD [facility] [address] [place] [address] 09/25/2021 10:24:20 09/25/2021 16:31:42 Essential hypertension 06772060 I10 stable on coreg/clon idine Hyperlipidemia 08221492 E78.2 continue Simvastati n as prescribed . Anxiety 83368076 F41.1 -feeling anxious due to headache and some family issues-imp rovingpt to d/c sertraline since she is on venlafaxin ept to continue trazodone Headache 73852967 R51.9 fair controlled due to anxiety and stress- pt is on topamax 100mg bid- she is on venlafaxin ept sees neuro who is prescribin g venlafaxin e [id number] MD [facility] [address] [place] [address] 02/02/2022 10:46:57 02/03/2022 14:32:27 Influenza vaccine needed 2932109046 106 Z23 Essential hypertension 36353456 I10 stable on coreg/clon idine Hyperlipidemia 80537353 E78.2 continue Simvastati n as prescribed . Anxiety 74756729 F41.1 -feeling anxious due to headache and some family issues-imp rovingpt to d/c sertraline since she is on venlafaxin ept to continue trazodone Headache 29177554 R51.9 fair controlled due to anxiety and stress- pt is on topamax 100mg bid- she is on venlafaxin ept sees neuro who is prescribin g venlafaxin e Obesity 431178559 E66.9 diet and exercise discussed with pt. [id number] MD Yolanda Barriga (Adult Med) [address] [address] 06/17/2022 10:19:55 06/18/2022 11:22:55 Essential hypertension 01359112 I10 stable on coreg/clon idine Hyperlipidemia 54446283 E78.2 continue Simvastati n as prescribed . Anxiety 73942457 F41.1 -feeling anxious due to headache and some family issues-imp rovingpt to d/c sertraline since she is on venlafaxin ept to continue trazodone Headache 72231239 R51.9 fair controlled due to anxiety and stress- pt is on topamax 100mg bid- she is on venlafaxin ept sees neuro who is prescribin g venlafaxin e Obesity 386593190 E66.9 diet and exercise discussed with pt. 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 s/p resection of pituitary tumor on 03/19 - pt was seen by eye doctor who advised pt to have mri ,suspectin g tumor is growing backpt to f/u with endo and ENT [id number] MD Yolanda Barriga (Adult Med) [address] [place] [address] 09/24/2022 10:00:48 09/29/2022 14:05:14 Essential hypertension 55881984 I10 with bradycardi a - pt is asymptomat ic -pt said she is feeling really greatpt is on coreg/clon idine - consider to lower clonidine 0.1 mg tid in future Anxiety 22748722 F41.1 -improving -d/stephenie sertraline since she is on venlafaxin ept to continue trazodone Hyperlipidemia 02813528 E78.2 continue Simvastati n as prescribed . Headache 74207983 R51.9 - pt is on topamax 100mg bid- she is on venlafaxin ept sees neuro who is prescribin g venlafaxin e Renewal of prescription 325067011 Z76.0 [id number] MD [facility] [address] [place] [address] 12/31/2022 09:26:47 01/01/2023 09:50:42 Essential hypertension 38319376 I10 with bradycardi a - pt is asymptomat icpt is on coreg/clon idine - pt to lower clonidine 0.1 mg tid - pt has bp cuff at home as well Hyperlipidemia 17483283 E78.2 continue Simvastati n as prescribed . Anxiety 39467854 F41.1 -stable without sertraline -d/stephenie sertraline since she was on venlafaxin e , but she stopped venlafaxin e as well - pt does not think she need itpt to continue trazodone Headache 78983378 R51.9 - pt is on topamax 100mg bid- she stopped taking venlafaxin ept sees neuro who prescribed venlafaxin e Overweight 932094175 E66 .3 [id number] Kaylan Gray MD [facility] (Adult Med) [address] [place] [address] 03/04/2023 08:53:13 03/08/2023 14:32:20 Essential hypertension 22864409 I10 with bradycardi a - pt is asymptomat icpt is on coreg/clon idine - lowered clonidine 0.1 mg tid - pt has bp cuff at home as well Hyperlipidemia 87987702 E78.2 continue Simvastati n as prescribed . Anxiety 10493124 F41.1 -stable without sertraline -d/stephenie sertraline since she was on venlafaxin e , but she stopped venlafaxin e as well - pt does not think she need itpt to continue trazodone Headache 85302044 R51.9 - pt is on topamax 100mg bid- she stopped taking venlafaxin ept sees neuro who prescribed venlafaxin e Screening mammography 24 323669 Z12.31 [id number] MD Yolanda Barriga (Adult Med) [address] [place] [address] 05/28/2023 11:58:13 06/02/2023 11:37:35 Headache 72730005 R51.9 - pt is on topamax 100mg bid- she stopped taking venlafaxin ept seen by neuro in the past who prescribed venlafaxin e - pt to restart to help with SILVA Upper resp iratory infection 45195351 J06.9 with allergies- pt to continue cetirizine / keep good hydration [id number] MD Yolanda Barriga (Adult Med) [address] [place] [address] 09/09/2023 08:43:01 09/10/2023 09:23:18 Essential hypertension 92431649 I10 with bradycardi a which improved with lowered clonidine - pt is asymptomat ic-fairly stable -pt is on coreg/clon idine - lowered clonidine 0.1 mg tid - pt has bp cuff at home as well Hyperlipidemia 09387035 E78.2 continue Simvastati n as prescribed . Anxiety 12693518 F41.1 -stable without sertraline -d/stephenie sertraline since she was on venlafaxin e , but she stopped venlafaxin e as well - pt does not think she need itpt to continue trazodone Headache 31792150 R51.9 - pt is on topamax 100mg bid- she stopped taking venlafaxin ept seen by neuro in the past who prescribed venlafaxin e - pt to restart to help with SILVA Overweight 866352820 E66 .3 [id number] MD Yolanda Barriga (Adult Med) [address] [place] [address] 03/16/2024 08:45:14 03/21/2024 09:12:13 Essential hypertension 01598126 I10 with bradycardi a - pt is asymptomat ic-fairly stable -pt is on coreg/losa rtan-kilgore e losartan to losartnhct pt is off of clonidine- pt has bp cuff at home as well Hyperlipidemia 53442322 E78.2 continue Simvastati n as prescribed . Anxiety 40008600 F41.1 -stable without sertraline -d/stephenie sertraline since she was on venlafaxin e , but she stopped venlafaxin e as well - pt does not think she need itpt to continue trazodone Headache 50039725 R51.9 - pt is on topamax 100mg bidpt seen by neuro in the past [id number] Guillermo Fam MD [facility] (Adult Med) [address] [place] [address] 07/04/2024 08:59:40 07/05/2024 08:45:01 Essential hypertension 12048053 I10 -Controlle d-BP today in clinic: 115/76mmHg (Goal <130/80)-C ontinue current therapy: carvedilol 12.5mg BID, losartan 50-hydroch lorothiazi de 12.5mg daily-Tren d renal function-R ecommended DASH diet-Discu ssed importance of regular exercise and/or physical activity inthe control of blood pressure.- Discussed low sodium diet w/ <2 g daily, avoidance of caffeine, appropriat e sleep hygiene and quality with >6 hours of uninterrup jessica sleep.-Pat ient to call the clinic with BP <110/70mmH g or >140/90mmH g-f/u in 6 months Hyperlipidemia 98064909 E78.5 -Continue current therapy: simvastati n 40mg daily-Rech veronika lipid panel-Trekelly d LFTs-Patie nt educated on the importance of diet, exercise and medication in the management of this condition. Generalize d anxiety disorder 03627291 F41.1 -Patient reports symptoms are controlled on current therapy-De nies active suicidal or homicidal thoughts. Denies history of suicidal or homicidal thoughts.- Reports anxiety symptoms are controlled -PHQ9 score: 0-Patient was educated on her prescribed medication s, rationale for medication s, dosing indication s, adverse reactions, black box warning, dosing indication s, SE (e.g., decreased libido, weight gain, gynecomast ia, and galactorrh ea) and the risks and benefits.- Patient instructed to go to ER or call 911 or [phone] for crisis (e.g., suicidal behaviors, suicidal ideations, intent or plan emerge). Additional ly, patient has suicide hotline #.-Clyde nue current therapy: trazodone 50mg daily-Advi sed patient to call clinic with questions Migraine 12261895 G43.90 9 -Managemen t per Neurology- Patient reports symptoms are controlled on current therapy-Co ntinue current therapy: Topiramate 100mg BID Screening for malignant neoplasm of colon 518298274 Z12.11 Screening mammography 24 886008 Z12.31 Screening for osteoporosis 224301942 Z13.820 Adult heal th examination 760525025 Z00.00 The patient was counseled regarding the appropriat e use ofalcohol, screening procedures and recommende d schedule for colonoscop y, cholestero l, thyroid and diabetes screening, prevention of dental and periodonta l disease, diet, regular sustained exercise for at least 30 minutes 3-4 times per week, regular use of seat belts.Arnoldo mmend dilated eye exam and glaucoma screening every 2 years or as indicated by ophthalmol ogy Overweight 098247312 E66 .3 Diabetes m ellitus screening 429436672 Z13.1 Chest pain 70032591 R07. 9 -Patient reports having brief episodes of chest pain once every 3 months-Pat ient declined work up at this time.-Arlene ent to monitor symptoms and notify if PCP if she would like to see a cardiologi st-ER precaution s advised Health Concerns Section Related Observation LastModified by Organization Detai ls LastModified Time None Recorded Concern Status LastModified by Organization Details LastModified Time None Recorded Advance Directives Directive N: Payers Encounter Date Sequence Insurance Name Policy Number Policy [place] Covered Member ID [place] Member ID Guarantor Name 03/04/2023 2 *SELF PAY* Jacquelyn Doss 03/04/2023 1 [facility] (MEDICARE REPLACEMENT/A DVANTAGE - PPO) [id number] Sarai Doss [id number] Sarai Doss 05/28/2023 2 *SELF PAY* Jacquelyn Doss 05/28/2023 1 [facility] (MEDICARE REPLACEMENT/A DVANTAGE - PPO) [id number] Sarai Doss [id number] Sarai Doss 09/09/2023 2 *SELF PAY* Jacquelyn Doss 09/09/2023 1 [facility] (MEDICARE REPLACEMENT/A DVANTAGE - PPO) [id number] Sarai Doss [id number] Sarai Doss 03/16/2024 2 *SELF PAY* Jacquelyn Doss 03/16/2024 1 [facility] (MEDICARE REPLACEMENT/A DVANTAGE - PPO) [id number] Sarai Doss [id number] Sarai Doss 07/04/2024 2 *SELF PAY* Jacquelyn Doss 07/04/2024 1 [facility] (MEDICARE REPLACEMENT/A DVANTAGE - PPO) [id number] Sarai Doss [id number] Sarai Doss Notes Date Note Type Note Provider Name and Address Organization Details Recorded Time 03/04/20 23 text/htm l Anxiety/DepressionReported bypatient.Quality:symptoms improved Severity:denies suicidal ideations Modifying Factors:medications as directed Associated Symptoms:denies homicidal ideations; mood good;anxiety(better);depression( better);headaches(stable)Headach eReported bypatient.Location:occipital; frontal Quality:not the worst headache ever Onset/Timing:better Context:triggered by life events (family issues); poor sleep (taking trazodone with some improvement); pt had resection of pituitary tumor on 03/19 , seen by neurosx . Alleviating factors:topamax Associated Symptoms:no vomiting; no sensitivity to lightNotes:pt is seeing neuro who started pt on effexorHyperlipidemiaReported bypatient.Duration:chronic Prior Tests:highest LDL level: (178) Control:improving Compliance:compliant; compliant with diet Complications:no coronary artery disease Risk Factors:hypertension;obesityHype rtension F/UReported bypatient.Associated Symptoms:no dizziness; no chest pain; no shortness of breath; no edema Lifestyle:limiting/avoiding salt Medications:taking medications as directed; no side effects from medication Kaylan Gray MD Attn: Accounting, [address] [place], [address], [place] - [facility] 03/04/2023 09:28:42 05/28/19 24 text/htm l HeadacheReported bypatient.Location:occipital; frontal Quality:not the worst headache ever Onset/Timing:better Context:triggered by life events (family issues); poor sleep (taking trazodone with some improvement); pt had resection of pituitary tumor on 03/19 , seen by neurosx . Alleviating factors:topamax Associated Symptoms:no vomiting; no sensitivity to lightNotes:pt is seeing neuro who started pt on effexorUpper Respiratory SymptomsReported bypatient.Location:head Quality:congested Severity:mild Duration:symptoms lasting over 2 weeks Context:no sick contacts; non-smoker;allergies Associated Symptoms:no sputum production; no wheezing; no fever; no sore throat Kaylan Gray MD Attn: Accounting, [address] [place], [address], [facility] 05/28/2023 14:41:01 09/09/19 24 text/htm l Anxiety/DepressionReported bypatient.Quality:symptoms improved Severity:denies suicidal ideations Modifying Factors:medications as directed Associated Symptoms:denies homicidal ideations; mood good;anxiety(better);depression( better);headaches(stable)Headach eReported bypatient.Location:occipital; frontal Quality:not the worst headache ever Onset/Timing:better Context:triggered by life events (family issues); poor sleep (taking trazodone with some improvement); pt had resection of pituitary tumor on 03/19 , seen by neurosx . Alleviating factors:topamax Associated Symptoms:no vomiting; no sensitivity to lightNotes:pt is seeing neuro who started pt on effexorHyperlipidemiaReported bypatient.Duration:chronic Prior Tests:highest LDL level: (178) Control:improving Compliance:compliant; compliant with diet Complications:no coronary artery disease Risk Factors:hypertension;obesityHype rtension F/UReported bypatient.Associated Symptoms:no dizziness; no chest pain; no shortness of breath; no edema Lifestyle:limiting/avoiding salt Medications:taking medications as directed; no side effects from medication Kaylan Gray MD Attn: Accounting, [address] [place], [address], [facility] 09/09/2023 09:02:42 03/16/20 24 text/htm l Anxiety/DepressionReported bypatient.Quality:symptoms improved Severity:denies suicidal ideations Modifying Factors:medications as directed Associated Symptoms:denies homicidal ideations; mood good;anxiety(better);depression( better);headaches(stable)Headach eReported bypatient.Location:occipital; frontal Quality:not the worst headache ever Onset/Timing:better Context:triggered by life events (family issues); poor sleep (taking trazodone with some improvement); pt had resection of pituitary tumor on 03/19 , seen by neurosx . Alleviating factors:topamax Associated Symptoms:no vomiting; no sensitivity to lightNotes:pt is seeing neuro who started pt on effexorHyperlipidemiaReported bypatient.Duration:chronic Prior Tests:highest LDL level: (178) Control:improving Compliance:compliant; compliant with diet Complications:no coronary artery disease Risk Factors:hypertension;obesityHype rtension F/UReported bypatient.Associated Symptoms:no dizziness; no chest pain; no shortness of breath; no edema Lifestyle:limiting/avoiding salt Medications:taking medications as directed; no side effects from medication Kaylan Gray MD Attn: Accounting, [address] [place], [address], [facility] 03/16/2024 09:51:00 07/05/19 25 text/htm l Patient presents to the clinic to establish care. Patient was previously established with Dr. Lynne Gray for primary care.Other providers:Neurology-Dr. Tse -Medical Hx/Surgical Hx: anxiety, benign tumor of sella turcica, chronic back pain, hypertension, migraines, hyperlipidemia, bladder procedure, cataract surgery, and total hysterectomy. -Family hx:Mother: -cancer, CVAFather: -prostate cancer, MIMaternal Grandmother: -unknownMaternal Grandfather: -unknownPaternal Grandmother: -unknownPaternal Grandfather: -unknown -Tobacco/Drug/Alcohol Use:Patient reports history of tobacco use. Patient started smoking at age 15 and she quit in 2008. She was a 1/2PPD.Denies history of drug or alcohol use. 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 Highest level of education: GED Allergies: codeine, and BRUNO Melgar-MONIQUE Attn: Accounting, [address] [place], [address], [facility] 07/05/2024 06:23:56 OBGyn Episode Ob Episode Information Episode Created Date Number of Fetuses Patient Bloodtype Patient rh Status Prepregnancy Weight lbs Domestic Partner Domestic Partner Phone Father Name Traverse Rod Assembler Status 03/04/20 20 1 CLOSED Fetus Data First Name Last Name Admitted to NICU Weight (g) Sex Living Outcome Pediatric Complications Fetus ID Race Codes Race Delivery Type , Spontane ous [id number] Alan Calculation Initial Alan Date Initial Exam Date Initial Exam Provider Initial Ultrasound Date Last Menstrual Period Date Ultra Sound Weeks Gestation 0 Eighteen To Twenty Week Alan Update Ultra Sound Date Fundal Height At Umbil Quickening Date Ultra Sound Latest Weeks Gestation Final Alan Confirmed By Final Alan Confirmed Date Final Alan Date Ultra Sound Latest Days Gestation 0 0 Menstrual History Last Menstrual Date Menses Monthly On Bcp Conception Prior Menses Frequency Hcg Plus Date Menarche Onset Age Delivery Information Delivery Date Delivery Type Labor Anesthesia Weeks Gestation Incision Type Labor Labor Length Hrs Delivered By Post Complications Tubal Sterilization Discharge Date Comments 2 Discharge Information Feeding Method Contraceptive Method Maternal HG B and HCT Levels Ob Episode Information Episode Created Date Number of Fetuses Patient Bloodtype Patient rh Status Prepregnancy Weight lbs Domestic Partner Domestic Partner Phone Father Name Traverse Rod Assembler Status 03/04/20 20 1 CLOSED Fetus Data First Name Last Name Admitted to NICU Weight (g) Sex Living Outcome Pediatric Complications Fetus ID Race Codes Race Delivery Type 2608.15 4 F Full Term 23371 Vaginal Alan Calculation Initial Alan Date Initial Exam Date Initial Exam Provider Initial Ultrasound Date Last Menstrual Period Date Ultra Sound Weeks Gestation 0 Eighteen To Twenty Week Alan Update Ultra Sound Date Fundal Height At Umbil Quickening Date Ultra Sound Latest Weeks Gestation Final Alan Confirmed By Final Alan Confirmed Date Final Alan Date Ultra Sound Latest Days Gestation 0 0 Menstrual History Last Menstrual Date Menses Monthly On Bcp Conception Prior Menses Frequency Hcg Plus Date Menarche Onset Age Delivery Information Delivery Date Delivery Type Labor Anesthesia Weeks Gestation Incision Type Labor Labor Length Hrs Delivered By Post Complications Tubal Sterilization Discharge Date Comments 6 Discharge Information Feeding Method Contraceptive Method Maternal HG B and HCT Levels Ob Episode Information Episode Created Date Number of Fetuses Patient Bloodtype Patient rh Status Prepregnancy Weight lbs Domestic Partner Domestic Partner Phone Father Name Traverse Rod Assembler Status 03/04/20 20 1 CLOSED Fetus Data First Name Last Name Admitted to NICU Weight (g) Sex Living Outcome Pediatric Complications Fetus ID Race Codes Race Delivery Type 3742.13 4 M Full Term 21529 Vaginal Alan Calculation Initial Alan Date Initial Exam Date Initial Exam Provider Initial Ultrasound Date Last Menstrual Period Date Ultra Sound Weeks Gestation 0 Eighteen To Twenty Week Alan Update Ultra Sound Date Fundal Height At Umbil Quickening Date Ultra Sound Latest Weeks Gestation Final Alan Confirmed By Final Alan Confirmed Date Final Alan Date Ultra Sound Latest Days Gestation 0 0 Menstrual History Last Menstrual Date Menses Monthly On Bcp Conception Prior Menses Frequency Hcg Plus Date Menarche Onset Age Delivery Information Delivery Date Delivery Type Labor Anesthesia Weeks Gestation Incision Type Labor Labor Length Hrs Delivered By Post Complications Tubal Sterilization Discharge Date Comments 4 Discharge Information Feeding Method Contraceptive Method Maternal HG B and HCT Levels Ob Episode Information Episode Created Date Number of Fetuses Patient Bloodtype Patient rh Status Prepregnancy Weight lbs Domestic Partner Domestic Partner Phone Father Name Traverse Rod Assembler Status 03/04/20 20 1 CLOSED Fetus Data First Name Last Name Admitted to NICU Weight (g) Sex Living Outcome Pediatric Complications Fetus ID Race Codes Race Delivery Type , Spontane ous 60890 Alan Calculation Initial Alan Date Initial Exam Date Initial Exam Provider Initial Ultrasound Date Last Menstrual Period Date Ultra Sound Weeks Gestation 0 Eighteen To Twenty Week Alan Update Ultra Sound Date Fundal Height At Umbil Quickening Date Ultra Sound Latest Weeks Gestation Final Alan Confirmed By Final Alan Confirmed Date Final Alan Date Ultra Sound Latest Days Gestation 0 0 Menstrual History Last Menstrual Date Menses Monthly On Bcp Conception Prior Menses Frequency Hcg Plus Date Menarche Onset Age Delivery Information Delivery Date Delivery Type Labor Anesthesia Weeks Gestation Incision Type Labor Labor Length Hrs Delivered By Post Complications Tubal Sterilization Discharge Date Comments 2 Discharge Information Feeding Method Contraceptive Method Maternal HG B and HCT Levels Ob Episode Information Episode Created Date Number of Fetuses Patient Bloodtype Patient rh Status Prepregnancy Weight lbs Domestic Partner Domestic Partner Phone Father Name Traverse Rod Assembler Status 03/04/20 20 1 CLOSED Fetus Data First Name Last Name Admitted to NICU Weight (g) Sex Living Outcome Pediatric Complications Fetus ID Race Codes Race Delivery Type 2919.77 1704 M Full Term 58069 Vaginal Alan Calculation Initial Alan Date Initial Exam Date Initial Exam Provider Initial Ultrasound Date Last Menstrual Period Date Ultra Sound Weeks Gestation 0 Eighteen To Twenty Week Alna Update Ultra Sound Date Fundal Height At Umbil Quickening Date Ultra Sound Latest Weeks Gestation Final Alan Confirmed By Final Alan Confirmed Date Final Alan Date Ultra Sound Latest Days Gestation 0 0 Menstrual History Last Menstrual Date Menses Monthly On Bcp Conception Prior Menses Frequency Hcg Plus Date Menarche Onset Age Delivery Information Delivery Date Delivery Type Labor Anesthesia Weeks Gestation Incision Type Labor Labor Length Hrs Delivered By Post Complications Tubal Sterilization Discharge Date Comments 4 Discharge Information Feeding Method Contraceptive Method Maternal HG B and HCT Levels
--- OUTSIDE RECORDS SUMMARY | 2024-10-01 17:59 | XMS_ITS | Continuity of Care Document ---
Author Organization [facility] [place] [address] [place] [address] Phone Care Team Providers Care Networking Specialist Name Role Phone Salvatore Urrutia MD Unavailable Unavailable Allergies, Adverse Reactions, Alerts Substance Reaction Status Criticality No Known Allergies Active No Inform ation Medications Medication Instructions Dosage Effective Dates (start - stop) Status Comments ketorolac 0.5 % eye drops instill 1 drop in operative eye 4 times every day for 2 weeks, then 2 times per day for 2 weeks, then stop - Active moxifloxacin 0.5 % eye drops instill 1 drop by ophthalmic route 4 times every day into operative eye for 2 weeks, then stop - Active prednisolone acetate 1 % eye drops,suspension instill 1 drop by ophthalmic route 4 times every day into operative eye for 2 weeks, then 2 times per day for 2 weeks, then stop - Active carvedilol 12.5 mg tablet take 1 tablet by oral route 2 times every day with food 12.5 MG - Active clonidine HCl 0.2 mg tablet take 1 tablet by oral route 2 times every day 0.2 MG - Active simvastatin 40 mg tablet take 1 tablet by oral route every day in the evening 40 MG - Active topiramate 100 mg tablet take 1 tablet by oral route 2 times every day 100 MG - Active trazodone 50 mg tablet take 1 tablet by oral route 3 times every day after meals 50 MG - Active Procedures Procedure Date No Charge Refraction Post-op Follow-up Visit Post-op Follow-up Visit Post-op Follow-up Visit Remove Cataract, Insert Lens IOLMaster-Professional No Charge Refraction Post-op Follow-up Visit Post-op Follow-up Visit Remove Cataract, Insert Lens IOLMaster-Professional IOLMaster-Technical SCODI, Retina No Charge Optomap Fundus Photos 023 No Charge Refraction No Charge Orbscan No Charge GDX Posterior Segment 023 Office/outpatient Visit, [facility] Advance Directives Directive Yes / No Effective Date File Name No Information Encounters Encounter Description Practice Location Reason(s) For Visit Diagnoses Date Provider Providers Copied on Encounter [facility], [address] [place] [address], [id number], tel:[phone] SEC Jason CARPENTER Professional Post-Op (chief complaint) Post op visit 3 Renan Chase. [address] [facility] [place], [id number], [place]. tel:[phone] Referring Provider: Maurizio Ramos OD, [address] [place] [address], [address] . tel:[phone] [facility], [address] [place] [address] [address], [place], [place], [id number], [place] tel:[phone] SEC Jason JAYDEN Professional 1 week s/p PCIOL (chief complaint) Post op visit 3 Elmer OD Apoorva. [address] [place] [address], [address], [place], [place], [id number], [place]. tel:[phone] Referring Provider: Maurizio Ramos OD, [facility] [place], [address] . tel:[phone] [facility], [address] [place] [address] [address], [place], [place], [id number], tel:[phone] SEC [place] JAYDEN Professional 1 day s/p PCIOL (chief complaint) Post op visit Aug- 3 Elmer OD Apoorva. [address] [place] [address] [employer] [facility], [address], [place], [place], [id number], . tel:[phone] Referring Provider: Maurizio Ramos OD, [address] [place] [address], [address] . tel:[phone] [facility], [address] [place] [address] [address], [place], [place], [id number], tel:[phone] [facility] No Information 3 Renan Chase. [address] [facility], [facility] [place], [id number], [place]. tel:[phone] Referring Provider: Maurizio Ramos OD, [address] [place] [address], [address] . tel:[phone] [facility], [address] [place] [address] [address], [place], [place], [id number], [phone] SEC Jason CARPENTER Professional No Information 3 Renan Chase. [address] [facility], [facility] [place], [id number], [place]. tel:[phone] Referring Provider: Maurizio Ramos OD, [address] [place] [address], [address] . tel:[phone] [facility], [address] [place] [address] [address], [place], [place], [address], [place] tel:[phone] SEC Jason CARPENTER Professional 2 week postop (chief complaint) Post op visit Aug-0 3 Elmer OD Apoorva. [address] [place] [address] [employer] [facility], [address], [place], [place], [id number], . tel:[phone] Referring Provider: Maurizio Ramos OD, [address] [place], [address] . tel:[phone] [facility], [address] [place] [address] [address], [place], [place], [id number], [place] tel:[phone] SEC Jason [place] Professional 1 day PC IOL po (chief complaint) Post op visit Jul-2 3 Elmer OD Apoorva. [address] [place] [address] [address], [address], [place], [place], [id number], [place]. tel:[phone] Referring Provider: Maurizio Ramos OD, [address] [place], [address] . tel:[phone] [facility], [address] [place] [address] [address], [place], [place], [id number], [place] tel:[phone] [facility] No Information Jul-2 3 Renan Chase. [address] [facility] [address], [place], [place], [address], [place]. tel:[phone] Referring Provider: Maurizio Ramos OD, [address] [place], [address] . tel:[phone] [facility], [address] [place] [address] [address], [place], [place], [address], [place] tel:[phone] SEC Jason JAYDEN Professional No Information Jul-2 3 Renan Chase. [address] [facility], [address], [place], [place], [address], [place]. tel:[phone] Referring Provider: Maurizio Ramos OD, [address] [place], [address] . tel:[phone] [facility], [address] [place] [address] [address], [place], [place], [id number], [place] tel:[phone] SEC Jason JAYDEN Professional No Information Jul-1 3 Renna Chase. [address] [employer], [address], [place], [place], [address], [place]. tel:[phone] Office/outpa tient Visit, [facility], [address], [place], [place], [id number], tel:[phone] SAVOn JAYDEN Professional Cataract evaluation (chief complaint) History of pituitary tumorDegenera tive retinal drusen, left eyeAge-relate d nuclear cataract, bilateral 3 Renan Chase. [address], [address], [place], [place], [address], [place]. tel:[phone] Referring Provider: Maurizio Ramos OD, [address] [facility], [place], [address] . tel:[phone] [facility], [address] [place] [address] [address], [place], [place], [address], tel:[phone] SAVOn JAYDEN Professional No Information 3 Renan Chase. [address] [employer], [address], [place], [place], [address], [place]. tel:[phone] Family History Family Member Type Diagnosis Age At Onset No Information Payers Payer name Insurance type Covered green party ID Authoriza tion(s) No Information Social History [...]
== END 2024-10-01 12:24 | disposition home or self-care (01) ==
PROVIDERS: Emergency Provider Registered Nurse
DX: J40 Bronchitis, not specified as acute or chronic (principal); Z87.891 Personal history of nicotine dependence; I10 Essential (primary) hypertension; E78.5 Hyperlipidemia, unspecified
CPT/HCPCS: 71046; 99203; G0463